=== PATIENT | male | born 1945 | race Caucasian/White ===

== ENCOUNTER 2017-10-17 08:56 | Day surgery (SDC) | payer MEDICARE ==
[~2017-10-17] VITALS: Ht 167.6 cm; Wt 91.3 kg
[2017-10-17] MEDS ORDERED: IOHEXOL 350 MG/ML 50 ML BTL (for Cath Lab) OTHER ONE (08:57)
[2017-10-17] MEDS ORDERED: NS 1000P @30 MLS/HR (KVO) IV SCH (09:00)
[2017-10-17] MEDS ORDERED: ONGL5TAB PO (09:38)
[2017-10-17] MEDS ORDERED: LOSA100T PO (09:38)
[2017-10-17] MEDS ORDERED: METO1TAB9 PO (09:38)
[2017-10-17] MEDS ORDERED: EVOL1INJ SQ (09:38)
[2017-10-17] MEDS ORDERED: LANTINJ SQ (09:38)
[2017-10-17] MEDS ORDERED: COQ1200C3 PO (09:38)
[2017-10-17] MEDS ORDERED: NOVOLOGP2 SQ (09:38)
[2017-10-17] MEDS ORDERED: VICT18IN SQ (09:38)
[2017-10-17] MEDS ORDERED: FENO160T PO (09:38)
[2017-10-17] MEDS ORDERED: ISOS120T PO (09:38)
[2017-10-17] MEDS ORDERED: ECASA81 PO (09:38)
[2017-10-17 09:39] VITALS: BP 165/89; PULSE 80; RESP 18; TEMP 97.9; O2SAT 96
[2017-10-17 09:58] LABS: AUTOMATED NEUTROPHIL # 5.3 TH/MM3 (1.8-7.7); BASOPHIL % 0.5 % (0.0-2.0); EOSINOPHIL # 0.1 TH/MM3 (0-0.4); EOSINOPHIL % 1.5 % (0.0-4.0); HEMATOCRIT 47.1 % (39.0-51.0); HEMO FLAGS DIFF FINAL; LYMPH % 24.2 % (9.0-44.0); MEAN CELL VOLUME 87.7 FL (80.0-100.0); MEAN CORPUSCULAR HEMOGLOBIN 30.8 PG (27.0-34.0); MEAN CORPUSCULAR HGB CONC 35.1 % (32.0-36.0); NEUT % 64.8 % (16.0-70.0); PLATELET COUNT 202 TH/MM3 (150-450); RED BLOOD COUNT 5.37 MIL/MM3 (4.50-5.90); RED CELL DISTRIBUTION WIDTH 13.7 % (11.6-17.2); WHITE BLOOD COUNT 8.1 TH/MM3 (4.0-11.0)
[2017-10-17 10:04] LABS: INTERNATIONAL NORMALIZED RATIO 1.1 RATIO; PROTHROMBIN TIME - PATIENT 10.7 SEC (9.8-11.6)
[2017-10-17 10:05] LABS: POTASSIUM 3.9 MEQ/L (3.5-5.1)
[2017-10-17] MEDS ORDERED: MIDAZOLAM HCL 2 MG/2 ML VIAL ONE (11:14)
[2017-10-17] MEDS ORDERED: HEPARIN-NS/PF INJ 1,000 ML ONE (11:14)
[2017-10-17] MEDS ORDERED: VERAPAMIL HCL 5 MG/2 ML VIAL ONE (11:15)
[2017-10-17] MEDS ORDERED: HEPARIN SODIUM - IV 10,000 UNITS/10 ML VIAL ONE (11:15)
[2017-10-17] MEDS ORDERED: NITROGLYCERIN INJ 5 ML ONE (11:15)
[2017-10-17] MEDS ORDERED: PHENYLEPHRINE HCL 10 MG/ML VIAL ONE (11:39)
[2017-10-17 11:41] VITALS: BP 73/35; PULSE 47
--- NOTE | 2017-10-17 12:00 | CATHPROC ---
[employer] HIS Report Study Information Study Number Admission Scheduled Start Study Start [id number] Oct 17 2017 8:56AM 10/17/2017 Oct 17 2017 10:50AM [place] [facility] Cardiac Catheterization Admit Source Facility Department Other [facility] - Associate Professor Of Radiology Physician and Clinical Staff Initial Christopher Davis Isolation Washer Kelle Pascual,[place] Recorder Abdi Helton,RT(R) Scrub Ladarius KanRT(R) Procedures Performed Procedure Location (Site) Vessel Name Coronary Angiograms LCA Left Coronary Coronary Angiograms RCA Right Coronary L Heart Cath Equipment Time Cell Repairer Description Size Mfg Part Number Used/Scraped TRANSDUCER, TRUWAVE [id number] 10:52 LU DE GUZMAN * Used W/STOCKCOCK *[id number] *[id number] 10:52 [facility] PACK, CCL CUSTOM * Used *[id number] 10:52 [facility] SUPPORT, ARTERIAL ADULT [id number] *[id number] Used BAND, RADIAL COMPRESSION TR [id number] 11:48 [employer] 24CM Used SHORT 24 *[id number] 10:52 [employer] WIRE, EXCHANGE 260CM 3MMJ 260CM Used *[id number] 10:52 NAMIC MANIFOLD, 4 PORT * Used *[id number] 10:52 [employer] OMNIPAQUE, 350 MG, 150ML 150ML [id number] Used [id number] 10:52 [employer],WARM AIR CCL * Used *[id number] SHEATH, FR6 TRANSRADIAL [id number] 10:52 Fundology FR 6 Used SLENDER 10CM *[id number] History: Current Medications Medication Dosage/Unit Route Frequency Last Date/Time Taken 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 Imdur ASA History: Allergies Allergy Reaction Penicillins Isjbbid-Hkt-Ibg Reductase Inhibitor naproxen tetracycline norfloxacin metformin History: Risk Factors Hypertension Dyslipidemia Previous CT Previous Heart Failure Yes Yes No No Prior Valve Prior PCI Prior CABG Surgery No No No Cerebrovascular Peripheral Artery Chronic Lung On Dialysis Diabetes Diabetes Therapy Disease Disease Disease No Yes No No Yes Insulin History: Risk Factors Selection Items Current Smoker Diabetes History: Symptoms/Diagnosis Selection Items Chest pain History: Stress Tests Stress or Imaging Studies Performed Yes Standard Exercise Stress Test No Stress Echo No Stress Test SPECT Stress Test SPECT Result Stress Test SPECT Ischemia Risk/Extent Yes Positive Intermediate Stress Test CMR No Cardiac CTA Coronary Calcium Score No No History: Other Disease Selection Items HTN History: Other Current Smoker Method Packs a Day Years Used Pack Years Yes Cigarettes 1 15 15 Labs Hgb (g/dl) Hct (%) RBC (MIL/MM3) WBC (l/cumm) Platelets (thousands) 11.60-17.00 35.00-51.00 4.00-5.90 4.00-11.00 150.00-450.00 16.5 47.1 5.3 8.1 202 Glucose (mg/dl) BUN (mg/dl) Creatinine (mg/dl) BUN:Creatinine (1:x) 74.00-106.00 7.00-18.00 0.50-1.30 10.00-20.00 314 19 1.1 17.3 Na (meq/l) K (meq/l) Cl (meq/l) CO2 (mmol/L) Ca (mg/dl) 136.00-145.00 3.50-5.10 98.00-107.00 21.00-32.00 8.50-10.10 140 3.9 104 27 9.7 PT (sec) PTT (sec) INR (PTT:PT) 9.80-11.60 24.30-30.10 0.90-1.10 10.7 24 1.1 CPK-MB (ng/ML) 0.50-3.60 Not Drawn Medication Medication Total Dose (Bolus/Oral) Medication Total Dosage/Unit 1% XYLOCAINE 20 mL FENTANYL 25 mcg RADIAL COCKTAIL 5 mL (Bolus) VERSED 0.5 mg Medications (Bolus/Oral) Medication Time Given Dosage/Unit Administered By Reason 10/17/2017 11:31:56 VERSED 0.5 mg Kelle Pascual AM 0.5 mg VERSED given in lab by Kelle Pascual, [place] in Left Antecubital via Peripheral IV. 10/17/2017 11:32:07 FENTANYL 25 mcg Kelle Pascual AM 25 mcg FENTANYL given in lab by Kelle Pascual RN in Left Antecubital via Peripheral IV. 10/17/2017 11:35:18 1% XYLOCAINE 20 mL Christopher Mckinley AM 20 mL 1% XYLOCAINE given in lab by Christopher Mckinley in Right Radial via Subcutaneous. 10/17/2017 11:35:24 Ntg 200mcg Verapamil 2.5mg Heparin RADIAL COCKTAIL 5 mL (Bolus) Christopher Mckinley AM 2500U 5 mL (Bolus) RADIAL COCKTAIL given in lab by Christopher Mckinley in Right Radial via Radial. Using [S olution Name]. Reason: Ntg 200mcg Verapamil 2.5mg Heparin 2500U. Medication (Drip) Medication Time Given Dosage/Unit Concentration/Unit Diluent (ml) Solution 10/17/2017 11:08:09 IV Solutions 0 mL (IV) 500 NaCl .9 AM IV Solutions given in lab by Kelle Pascual, [place] in Left Antecubital via Peripheral IV. Pump/Drip Gary w = 20 ml/hr using NaCl .9. 10/17/2017 11:40:50 LINDA-SYNEPHRINE 50 mcg AM 50 mcg LINDA-SYNEPHRINE given in lab by Kelle Pascual, [place] in Left Antecubital via Peripheral IV. Initial Case Assessment Cardiovascular HR Rhythm NIBP Chest Pain 73 Sinus 160/92 0 Edema Present Skin color Skin None Normal Warm Dry Circulatory - Right Pulses Dorsalis Pedis Femoral Radial 3 3 3 Scale (0,1,2,3,4,d) Scale (0,1,2,3,4,d) Neurological State Oriented to time-place- Alert Moves all extremities person Respiration - General Respiration Rate SpO2 (%) O2 (lpm) (B/min) 20 96 0 Final Case Assessment Cardiovascular HR Rhythm NIBP Chest Pain 62 Sinus 115/55 0 Edema Present Skin color Skin None Normal Warm Dry Circulatory - Right Pulses Dorsalis Pedis Femoral Radial 3 3 3 Scale (0,1,2,3,4,d) Scale (0,1,2,3,4,d) Neurological State Oriented to time-place- Alert Moves all extremities person Respiration - General Respiration Rate SpO2 (%) O2 (lpm) (B/min) 10 93 0 Chronological Log Time Study Chronological Log 11:05:47 Patient arrived via Bed. 11:07:53 Patient Name, D.O.B, / Armband Verified By R.N. 11:07:54 Consent signed by the physician and the patient and verified by the Associate Professor Of Radiology staff. 11:07:55 Pre-op and post- op instructions given; patient acknowledges understanding of instructions. 11:07:56 Verbal Stimulation=2 Physical Stimulation=2 Airway=2 Respiration=2 TOTAL=8. (0=absent, 1=li mited, 2=present) 11:07:58 Presedation assessment performed by Associate Professor Of Radiology RN. 11:08:00 Allens test performed on the right radial and ulnar artery. 11:08:02 Patient has been NPO for More than 6Hrs. 11:08:03 Skin Breakdown- none per patient. 11:08:04 Patient Warmer Placed on the Table. 11:08:06 Svetlana Prominences Protected 11:08:08 A # 20 IV was noted in the Antecubital (left). Grade = 0 IV Solutions given in lab by Kelle Pascual, RN in Left Antecubital via Peripheral IV. Pump/Dr ip Flow = 20 ml/hr using 11:08:09 NaCl .9. 11:08:11 History and physical on the chart or being dictated. Assessment: Initial Case, HR=73 BPM, Rhythm=Sinus, FJTF=411/92 mmhg, Chest Pain=0, Edema=None, Color=Normal, Skin = Warm, Dry 11:08:12 Right Pulses: [place] Ped=3, Femoral=3, Radial=3 Neurological: State=Alert, Ox3, VEGA Respiration: Resp=20 B/min, SpO2=96 %, O2=0 lpm Vitals capture started with the following parameters, Patient=Adult, Interval=5 min, Initial Pr jixnwc=288 mmHg, 11:10:22 Deflation Rate=5 mmHg, Cuff placed on Right Arm 11:11:01 HR=72 bpm, QJFW=581/92 mmhg, SpO2=94.0 %, Resp=14 B/min, Pain=0, Kath=10, Puri=2 11:16:07 HR=77 bpm, KIDU=092/89 mmhg, SpO2=93.0 %, Resp=12 B/min, Pain=0, Kath=10, Puri=2 11:16:39 Reference ECG taken 11:21:00 Right Radial and groin(s) prepped with 2% chlorhexidine, and draped after a 3 min. waiting time. 11:21:06 HR=74 bpm, LHMM=410/104 mmhg, SpO2=94.0 %, Resp=15 B/min, Pain=0, Kath=10, Puri=2 11:21:45 paged 11:25:58 Pressure channel 1 zeroed. 11:26:07 HR=72 bpm, JEVM=958/76 mmhg, SpO2=93.0 %, Resp=8 B/min, Pain=0, Kath=10, Puri=2 11:27:46 MD arrived. 11:31:04 HR=72 bpm, OGQD=309/78 mmhg, SpO2=93.0 %, Resp=13 B/min, Pain=0, Kath=10, Puri=2 11:31:56 0.5 mg VERSED given in lab by Kelle Pascual, RN in Left Antecubital via Peripheral IV. 11:32:07 25 mcg FENTANYL given in lab by Kelle Pascual, [place] in Left Antecubital via Peripheral IV. 11:32:35 Reference ECG taken Time Out. Correct patient, correct procedure, correct physician, power injector not loaded with contrast with surgical 11:32:40 team present. Time Out Concurred by MD and individual staff in procedure. 11:33:06 Case Start 11:35:18 20 mL 1% XYLOCAINE given in lab by Christopher Mckinley in Right Radial via Subcutaneous. 11:35:20 Access site was Radial Artery. A SHEATH, FR6 TRANSRADIAL SLENDER 10CM FR 6 was advanced into the Radial (right) using the Perc utaneous 11:35:23 technique. 5 mL (Bolus) RADIAL COCKTAIL given in lab by Christopher Mckinley in Right Radial via Radial. Us ing [Solution Name]. 11:35:24 Reason: Ntg 200mcg Verapamil 2.5mg Heparin 2500U. A JR 4.0 INFINITI CATHETER FR 5 was advanced over a wire. OMNIPAQUE, 350 MG, 150ML 150ML was us ed for 11:35:57 injections. 11:36:05 HR=80 bpm, CMUS=371/68 mmhg, SpO2=92.0 %, Resp=15 B/min, Pain=0, Kath=10, Puri=2 Recorded Pressure: LV, HR=68, Condition=Condition 1 11:37:40 (Left Ventricle) LV 82/1/5 Recorded Pressure: LV, Ao, HR=67, Condition=Condition 1 11:37:50 (Left Ventricle) LV 81/-3/9, (Aorta) Ao 72/33/49 11:38:13 NIBP STAT measurement started. 11:38:28 Pressure channel 1 zeroed. 11:38:49 HR=57 bpm, NIBP=74/42 mmhg, Resp=15 B/min, Pain=0, Kath=10, Puri=2 11:40:14 The RCA was injected and visualized at various angles. OMNIPAQUE, 350 MG, 150ML 150ML used . 11:40:50 50 mcg LINDA-SYNEPHRINE given in lab by Kelle Pascual RN in Left Antecubital via Periphera l IV. 11:40:58 HR=44 bpm, NIBP=73/40 mmhg, Resp=7 B/min, Pain=0, Kath=10, Puri=2 Recorded Pressure: Ao, HR=45, Condition=Condition 1 11:41:27 (Aorta) Ao 57/31/41 11:41:44 The LCA was injected and visualized at various angles. OMNIPAQUE, 350 MG, 150ML 150ML used . After removing the current catheter a catheter was advanced over a WIRE, EXCHANGE 260CM 3MMJ 26 0CM. Medtronic 11:43:41 JL3.5 11:44:57 The LCA was injected and visualized at various angles. OMNIPAQUE, 350 MG, 150ML 150ML used . Medtronic JL3.5 11:46:27 HR=52 bpm, IHPW=156/55 mmhg, Resp=10 B/min, Pain=0, Kath=10, Puri=2 11:48:35 Catheter was removed 11:50:23 Case End Radial Compression Device Used. 11 mLs of air placed in BAND, RADIAL COMPRESSION TR SHORT 24 24 CM. Affected 11:50:32 hand 91 % O2 saturation. 11:50:51 No case complications noted. 11:50:53 Cine recording checked. 11:51:00 HR=61 bpm, WKMJ=222/55 mmhg, SpO2=92.0 %, Resp=11 B/min, Pain=0, Kath=10, Puri=2 11:51:31 Bedside Report will be given. Assessment: Final Case, HR=62 BPM, Rhythm=Sinus, RLGE=175/55 mmhg, Chest Pain=0, Edema=None, Color=Normal, Skin = Warm, Dry 11:51:39 Right Pulses: Olayinka Ped=3, Femoral=3, Radial=3 Neurological: State=Alert, Ox3, VEGA Respiration: Resp=10 B/min, SpO2=93 %, O2=0 lpm 11:52:54 A Left Heart Cath was performed. 11:55:32 Vitals capture stopped. 11:59:32 Patient moved to stretcher End Study - Contrast Media Used In Study Contrast Total Opened (mL) Total Used (mL) Total Wasted (mL) Omnipaque 150 50 100 End Study - Maximum Contrast Load Max Contrast Load (mL) 415.1 End Study - Radiation Exposure Fluoro Time (minutes) 2.4 End Study - Patient Disposition Complications Transferred To Interventional Outcome No Outpatient Bed No attempt made
[2017-10-17] MEDS ORDERED: MISC INFORMATION XX ONE (12:15)
[2017-10-17] MEDS ORDERED: DEXTROSE 50% IN WATER 50 ML VIAL(D50) IV PUSH PRN (13:45)
--- NOTE | 2017-10-17 13:53 | MA ---
cc: HAM DURANT DO DATE 10/17/2017 PROCEDURE Left heart catheterization, coronary angiogram, moderate sedation 20 minutes. PREPROCEDURE DIAGNOSIS Chest pain, abnormal stress test. POSTPROCEDURE DIAGNOSIS Multivessel coronary artery disease for coronary artery bypass grafting. MEDICATIONS 1. Versed 0.5 mg 2. Fentanyl 25 mcg. 3. Verapamil 2.5 mg 4. Nitro 200 mcg 5. Heparin 3700 units 6. Rodrigo-Synephrine 50 mcg CONTRAST USED 50 cc FLUOROSCOPY 2.4 minutes ANESTHESIA Moderate sedation 20 minutes ESTIMATED BLOOD LOSS 10 cc PROCEDURAL SUMMARY Ankush Salamanca is a pleasant 72-year-old male who sees my partner Dr. Reaves in the office and presented with chest pain. He underwent stress testing earlier this year and was found to have anterior ischemia. At that time, he was feeling relatively asymptomatic and so further testing was held off. He started noticing chest pain when he was getting anxious as well, shortness of breath and so he was recommended cardiac catheterization. The risks, benefits and alternatives were explained to him and he consented as such. He was brought to the lab and prepped in the usual sterile fashion. The right radial artery was accessed using a modified Seldinger technique and placement of a 5/6 Somali slender sheath. This was easily aspirated and flushed. A JR-4 was advanced over a J-wire to the ascending aorta and across the aortic valve for measurement of left ventricular pressure. This was pulled back across the aortic valve showing no significant gradient of aortic stenosis. JR-4 was used for selective angiography of the right coronary artery systems. This was exchanged out for a JL-3.5 which was used for selective angiography of the left coronary artery system. JL-3.5 was removed over a J-wire. Radial band was placed over the arteriotomy site for hemostasis. The patient left the medical laboratory manager cardiovascularly stable. FINDINGS Left main is a normal sized vessel with mild luminal irregularities, but no significant disease noted. It bifurcates into an LAD and circumflex. LAD is a normal-sized vessel with a 90% lesion in the proximal portion and a 90% lesion in the midportion. Distally it has good runoff. It gives off one major diagonal with no significant disease. Left circumflex is a normal sized vessel with mild luminal irregularities throughout the proximal portion. An 80-90% lesion in the midportion. It gives off three major obtuse marginales with no significant disease. RCA is a small to moderate sized vessel with an 80% lesion in the midportion and a 90% lesion distally. It supplies the PDA with a 70% lesion also. LVEDP 9. IMPRESSIONS 1. Multivessel coronary artery disease for coronary artery bypass grafting. 2. Chest pain atypical for coronary insufficiency, abnormal stress test. 3. Diabetes mellitus. RECOMMENDATIONS 1. Mr. Galarza appears to have multivessel disease and as a diabetic he will be recommended consideration of coronary artery bypass grafting. 2. CT surgery will be consulted to evaluate for coronary artery bypass grafting. 3. He can be discharged home and followed up for elective bypass. He will be recommended that if he has any further chest pain that he should come back to the emergency room and we will change our plan for timing of bypass. 4. He will follow up with Dr. Reaves post bypass surgery. Thank you for allowing me to see Ankush Salamanca. If there are any questions, please do not hesitate to call. Ham Durant DO VGP/DJL /12:02 PM /1:30 PM
--- NOTE | 2017-10-17 14:10 | PD.CAR.PN ---
CVT Progress Note Subjective/Hospital Course: sts data discussed with pt RISK SCORES About the STS Risk Calculator Procedure: CAB Only Risk of Mortality: 1.085% Morbidity or Mortality: 10.785% Long Length of Stay: 4.331% Short Length of Stay: 47.676% Permanent Stroke: 0.87% Prolonged Ventilation: 6.214% DSW Infection: 0.581% Renal Failure: 3.575% Reoperation: 4.105% Objective: Vital Signs Date Time Temp Pulse Resp B/P (MAP) Pulse Ox O2 Delivery O2 Flow Rate FiO2 10/17/17 12:06 95 Room Air 10/17/17 11:41 47 73/35 10/17/17 09:39 97.9 80 18 165/89 (114) 96 Labs: Laboratory Tests Test 10/17/17 07:25 White Blood Count 8.1 TH/MM3 (4.0-11.0) Red Blood Count 5.37 MIL/MM3 (4.50-5.90) Hemoglobin 16.5 GM/DL (13.0-17.0) Hematocrit 47.1 % (39.0-51.0) Mean Corpuscular Volume 87.7 FL (80.0-100.0) Mean Corpuscular Hemoglobin 30.8 PG (27.0-34.0) Mean Corpuscular Hemoglobin Concent 35.1 % (32.0-36.0) Red Cell Distribution Width 13.7 % (11.6-17.2) Platelet Count 202 TH/MM3 (150-450) Mean Platelet Volume 8.2 FL (7.0-11.0) Neutrophils (%) (Auto) 64.8 % (16.0-70.0) Lymphocytes (%) (Auto) 24.2 % (9.0-44.0) Monocytes (%) (Auto) 9.0 % (0.0-8.0) Eosinophils (%) (Auto) 1.5 % (0.0-4.0) Basophils (%) (Auto) 0.5 % (0.0-2.0) Neutrophils # (Auto) 5.3 TH/MM3 (1.8-7.7) Lymphocytes # (Auto) 2.0 TH/MM3 (1.0-4.8) Monocytes # (Auto) 0.7 TH/MM3 (0-0.9) Eosinophils # (Auto) 0.1 TH/MM3 (0-0.4) Basophils # (Auto) 0.0 TH/MM3 (0-0.2) CBC Comment DIFF FINAL Differential Comment Prothrombin Time 10.7 SEC (9.8-11.6) Prothromb Time International Ratio 1.1 RATIO Activated Partial Thromboplast Time 24.0 SEC (24.3-30.1) Blood Urea Nitrogen 19 MG/DL (7-18) Creatinine 1.12 MG/DL (0.60-1.30) Random Glucose 314 MG/DL (74-106) Calcium Level 9.7 MG/DL (8.5-10.1) Sodium Level 140 MEQ/L (136-145) Potassium Level 3.9 MEQ/L (3.5-5.1) Chloride Level 104 MEQ/L (98-107) Carbon Dioxide Level 27.0 MEQ/L (21.0-32.0) Anion Gap 9 MEQ/L (5-15) Estimat Glomerular Filtration Rate 65 ML/MIN (>89) Result Diagram: 10/17/17 0725 10/17/17 0725 Starr Mullins Oct 17, 2017 14:10
--- NOTE | 2017-10-17 14:53 | MB ---
cc: YRIS CHERRY DATE OF CONSULTATION 10/17/2017 REASON FOR CONSULTATION Ankush Salamanca is a 72-year-old male patient Dr. Reaves and Dr. Linh Neves who has been having chest pain off and on for the last couple years, mainly notices about three times a week associated more with stress and anxiety with or without exertion. He feels that when he gets it, he gets a tightness in his chest like a rope closing in around his chest. He was given a prescription for some nitro which he has been taking recently which seems to help his discomfort. He was told back in the that he had some abnormal T-waves and was worked up in the past and was found to have gastroesophageal reflux disease. He underwent nuclear stress testing back in October. At that time, it demonstrated a small area of mild to moderate reversibility in the anterior apical region. EF at that time was calculated at 63%. This was followed by cardiac cath today by Dr. Mckinley, his partner, which showed left main disease of 10%. The proximal LAD 90%. The mid distal LAD 90%. The diagonal had 10%. The circ had 90%. The OM 20%. The RCA 80%. We were consulted to evaluate for coronary artery bypass grafting. PAST MEDICAL HISTORY Includes: 1. Abnormal stress test back in 2016 2. Anxiety 3. Hyperlipidemia 4. Hypertension 5. Insulin dependent diabetes mellitus poorly controlled. SURGERIES 1. He has had a cyst removed from his groin. 2. He has had some skin cancers removed from his scalp. 3. History kidney stones. 4. 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 ALLERGIES Include METFORMIN, NAPROXEN, PENICILLIN, STATINS CAUSED MYALGIAS, TETRACYCLE. MEDICATIONS His med list includes: 1. Aspirin 81 daily 2. Co-Q10 3. Tricor 160 p.o. daily 4. Lasix 40 p.o. daily 5. Imdur 120 mg daily 6. He takes Lantus 65 units in the morning. 7. Losartan 100 daily 8. Toprol XL 50 mg daily 9. Onglyza 5 mg p.o. daily 10. Repatha 11. He takes for his hyperlipidemia Victoza 1.2 ml daily. FAMILY HISTORY Father had his first AL at age 38, at 68 from an AL. Mother committed suicide. His younger brother had his bypass grafting x4 in his 40s. SOCIAL HISTORY The patient . He has been smoking approximately eight cigarettes a day for the last 15 years. Rare alcohol. 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 REVIEW OF SYSTEMS GENERAL: No night sweats, fever, heat and cold intolerance. SKIN: No psoriasis, itching or hives. HEENT: No blurred vision or hearing loss. RESPIRATORY: Some cough, shortness of breath when he has the chest discomfort. CARDIOVASCULAR: As above in the HPI. GASTROINTESTINAL: No diarrhea or vomiting. GENITOURINARY: No burning frequency, urgency. STEEPING PRESS TENDER: No history of TIA, CVA, or seizure disorder. ENDOCRINOLOGY: Positive for diabetes. PHYSICAL EXAM On exam blood pressure 160/80, heart rate of 80, afebrile. Patient is awake, alert in no acute distress. HEAD: Normocephalic, atraumatic. EYES, EARS, NOSE AND THROAT: Pupils equal and reactive. Oral mucosa pink, moist. NECK: Supple. No JVD. HEART: S1-S2, regular rate and rhythm. No audible rubs, murmurs, or gallops. LUNGS: Clear to auscultation. No wheezes, rales or rhonchi. ABDOMEN: Soft and nontender. No masses or organomegaly. EXTREMITIES: No cyanosis, clubbing or edema. LABORATORY WORK Hemoglobin of 16, hematocrit of 47, white cell count 8.1, platelet count of 202. Sodium 140, potassium 3.9, BUN of 19, creatinine 1.12, INR 1.1. Chest x-ray pending. Carotid ultrasound and lower vein mapping pending. PFTs are pending. IMPRESSION This is a 72-year-old male with multivessel disease as described as above. Coronary films have been evaluated by Dr. Yris Cherry. The procedures, alternatives and risks have been discussed with the patient. PLAN Planning will be for coronary artery bypass grafting on October 24. In the meantime, I have discussed more strict adherence to his diet in regards to his elevated blood sugars. His hemoglobin A1c is pending. He is to continue all meds except to hold the losartan three days prior to surgery. Dictated by: KARELY Valera MD CHARI Hu/SHARON /2:03 PM /2:18 PM
--- NOTE | 2017-10-17 15:06 | RADRPT ---
EXAM DATE/TIME: 10/17/2017 14:05 [facility] COMPARISON: No previous studies available for comparison. INDICATIONS : Pre-op CABG. MEDICAL HISTORY : Hypertension. Diabetes. Kidney stones. SURGICAL HISTORY : Cardiac catheterization. ENCOUNTER: Initial ACUITY: 1 day PAIN SCORE: 0/10 LOCATION: Bilateral legs. TECHNIQUE: Venous ultrasound of the left and right leg was performed from the inguinal ligament to the proximal calf. Real-time, color Doppler and spectral tracing, compression and augmentation techniques were us ed. FINDINGS: RIGHT LEG: There is normal compressibility of the deep venous system from the inguinal region to the proximal ca lf. No echogenic clot is seen in the lumen of the common femoral, femoral, popliteal, and posterior tibial veins. There is a normal response of the venous system to proximal and distal augmentation an d respiration. LEFT LEG: There is normal compressibility of the deep venous system from the inguinal region to the proximal ca lf. No echogenic clot is seen in the lumen of the common femoral, femoral, popliteal, and posterior tibial veins. There is a normal response of the venous system to proximal and distal augmentation an d respiration. CONCLUSION: No evidence of DVT. Simone Shafer MD on October 17, 2017 at 15:03 Board Certified Radiologist. This report was verified electronically.
--- NOTE | 2017-10-17 15:21 | RADRPT ---
EXAM DATE/TIME: 10/17/2017 14:14 [facility] COMPARISON: No previous studies available for comparison. INDICATIONS : Pre-op CABG. MEDICAL HISTORY : Hypertension. Kidney stones. Diabetes. SURGICAL HISTORY : Cardiac catheterization. ENCOUNTER: Initial ACUITY: 1 day PAIN SCORE: 0/10 LOCATION: Bilateral legs. GREATER SAPHENOUS VEIN THIGH: PROXIMAL: Right 6 mm Left 6 mm MID: Right 3 mm Left 3 mm DISTAL: Right 4 mm Left 3 mm CALF: PROXIMAL: Right 4 mm Left 3 mm MID: Right 3 mm Left 2 mm DISTAL: Right 3 mm Left 3 mm FINDINGS: The venous system of the lower extremities are patent by color Doppler imaging. Measurements of the leg veins (in mm) are listed above. CONCLUSION: Venous mapping study as described. Catracho Cornell MD on October 17, 2017 at 15:19 Board Certified Radiologist. This report was verified electronically.
[2017-10-17 15:22] LABS: ALT (GPT) 23 U/L (12-78); AST (GOT) 22 U/L (15-37)
[2017-10-17 15:24] LABS: ALKALINE PHOSPHATASE 93 U/L (45-117); INDIRECT BILIRUBIN 0.4 MG/DL (0.0-0.8); TOTAL BILIRUBIN ADULT 0.5 MG/DL (0.2-1.0)
--- NOTE | 2017-10-17 15:33 | RADRPT ---
EXAM DATE/TIME: 10/17/2017 14:32 [facility] COMPARISON: No previous studies available for comparison. INDICATIONS : Pre-op CABG. MEDICAL HISTORY : Hypertension. Diabetes. Skin cancer. Kidney stones. SURGICAL HISTORY : Cardiac catheterization. ENCOUNTER: Initial ACUITY: 1 day PAIN SCORE: 0/10 LOCATION: Bilateral neck PEAK SYSTOLIC VELOCITIES (cm/sec): ICA/CCA RATIO: Right: 1.2 Left: 0.6 ICA: Right: 153 Left: 121 CCA: Right: 124 Left: 188 ECA: Right: 258 Left: 165 VERTEBRAL: Right: 66 antegrade Left: 98 antegrade Elevated flow velocities and ICA/CCA ratios have been found to correlate with increased degrees of vessel stenosis, calculated as percentage of diameter relative to a normal segment of distal ICA/CCA FINDINGS: RIGHT CAROTID: Mild calcified plaque with resultant moderate, 50-69%, flow-limiting stenosis based on peak systolic velocities. The waveforms are otherwise within normal limits. LEFT CAROTID: Mild calcified plaque with resultant mild, less than 50%, flow-limiting stenosis based on peak systol ic velocities. If waveforms are otherwise within normal limits. VERTEBRAL ARTERIES: Antegrade flow is seen in both vertebral arteries. MISCELLANEOUS: None. CONCLUSION: 1. Mild right carotid plaque with moderate, 50-69%, flow-limiting stenosis based on peak systolic fadia ocities. This is in the lower range, nearly 50%. 2. Mild left carotid plaque with mild, less than 50%, flow-limiting stenosis. 3. Antegrade vertebral artery flow bilaterally. Los Patel MD on October 17, 2017 at 15:28 Board Certified Radiologist. This report was verified electronically.
--- NOTE | 2017-10-17 15:54 | RADRPT ---
EXAM DATE/TIME: 10/17/2017 15:38 [facility] COMPARISON: No previous studies available for comparison. INDICATIONS : [facility] for pneumothorax, pneumonia, or communicable diseases. Pre-op CABG. MEDICAL HISTORY : None. SURGICAL HISTORY : None. ENCOUNTER: Initial ACUITY: 1 day PAIN SCORE: 0/10 LOCATION: chest FINDINGS: There is mild probable atelectasis or scarring in the lung bases. There is no evidence of effusion. C ardiomediastinal contours are satisfactory. There is degenerative change present in the thoracic spin e. CONCLUSION: Mild basilar parenchymal opacities. Joni Harden MD on October 17, 2017 at 15:49 Board Certified Radiologist. This report was verified electronically.
[2017-10-17 16:23] LABS: BLOOD, URINE NEG (NEG); COMMENT (UR) CULT NOT INDICATED; CULTURE IF INDICATED CULT NOT INDICATED; GLUCOSE,URINE 1000 mg/dL (NEG); KETONE, URINE NEG (NEG); MUCUS URINE FEW /lpf (OCC); NITRITE,URINE NEG (NEG); PH, URINE 5.5 (5.0-8.5); URINE COLOR YELLOW (YELLW/STRAW)
[2017-10-17 16:53] LABS: HEMOGLOBIN A1a 1.4 %; HEMOGLOBIN A1b 1.1 %; HEMOGLOBIN Ao 75.5 %; HEMOGLOBIN F 2.1 %; HEMOGLOBIN LA1C 3.5 %; HEMOGLOBIN P3 5.7 %
--- NOTE | 2017-10-18 23:36 | EKG ---
Date Performed: 10/17/2017 Time Performed: 09:55:24 PTAGE: 72 years EKG: Sinus rhythm Anterolateral T wave changes are nonspecific Borderline ECG NO PREVIOUS TRACING DOCTOR: Dhaval Rodriguez Interpretating Date/Time 10/18/2017 23:35:38
[2017-10-19] MEDS ORDERED: CHOL1CAP24 PO (13:27)
[2017-10-19] MEDS ORDERED: OCUVTAB4 PO (13:27)
[2017-10-19] MEDS ORDERED: CYAN1TAB24 PO (13:27)
== END 2017-10-17 17:17 | disposition home or self-care (01) ==
LOC: HDOC 08:56 → HDIC 08:56 → HDOC 17:17
PROVIDERS: ATTEND Nuclear Medicine Nuclear Cardiology
DX: I25.10 Atherosclerotic heart disease of native coronary artery without angina pectoris (principal); R07.89 Other chest pain; R06.02 Shortness of breath; E11.9 Type 2 diabetes mellitus without complications; K21.9 Gastro-esophageal reflux disease without esophagitis; E78.5 Hyperlipidemia, unspecified; I10 Essential (primary) hypertension; I65.23 Occlusion and stenosis of bilateral carotid arteries; Z79.4 Long term (current) use of insulin; Z95.1 Presence of aortocoronary bypass graft; Z87.442 Personal history of urinary calculi
CPT/HCPCS: 71020; 80048; 80076; 81001; 83036; 85025; 85610; 85730; 86850; 86900; 86901; 87641; 93005; 93458; 93880; 93970; 93998; 94010; C1760; C1769; C1893; J1644; J2250; J2370; J3010; Q9967

== ENCOUNTER 2017-10-24 05:36 | Inpatient (IN) | payer MEDICARE ==
[2017-10-24] VITALS (13 sets, daily range): BP systolic 99–135; BP diastolic 43–65; PULSE 62–78; RESP 10–18; TEMP 95.6–98.6; O2SAT 90–98
[~2017-10-24] VITALS: Ht 167.6 cm; Wt 94.0 kg
[~2017-10-24 05:36] MED LIST: CHOL1CAP24 PO; COQ1200C3 PO; CYAN1TAB24 PO; ECASA81 PO; EVOL1INJ SQ; FENO160T PO; ISOS120T PO; LANTINJ SQ; LOSA100T PO; METO1TAB9 PO; NOVOLOGP2 SQ; OCUVTAB4 PO; ONGL5TAB PO; VICT18IN SQ
[2017-10-24] MEDS ORDERED: DEXTROSE 50% IN WATER 50 ML VIAL(D50) IV PUSH PRN ×2 (06:00→11:45)
[2017-10-24] MEDS ORDERED: INSULIN REGULAR 100 UNITS in NS 100 ML IV PRN (06:00)
[2017-10-24] MEDS ORDERED: SODIUM CHLORIDE 0.9% FLUSH 10 ML FLUSH IV FLUSH PRN ×3 (06:00→11:45)
[2017-10-24] MEDS ORDERED: CHLORHEXIDINE GLUCONATE 4% SOLN 120 ML BTL TOPICAL SCH (06:00)
[2017-10-24] MEDS ORDERED: METOPROLOL TARTRATE 25 MG TAB PO SCH (06:00)
[2017-10-24] MEDS ORDERED: VANCOMYCIN 1000 MG in NS IRR BTL 1000 ML IRRIGATION SCH (06:00)
[2017-10-24] MEDS ORDERED: POVIDONE IODINE 5% (ANTISEPSIS KIT) 4 APPLICATIONS EACH NARE PRN (06:15)
[2017-10-24] MEDS ORDERED: LACTATED RINGER'S 1000 ML IV PRN (06:15)
[2017-10-24] MEDS ORDERED: CHLORHEXIDINE GLUCONATE 2 % 1 PACK (2 CLOTHS) TOPICAL PRN (06:15)
[2017-10-24] MEDS ORDERED: SODIUM CHLORID 0.9% 500 ML IV PRN (06:15)
[2017-10-24] MEDS ORDERED: methylPREDNISolone SOD SUCC 125 MG/2 ML VIAL ONE (06:31)
[2017-10-24] MEDS ORDERED: HEPARIN SODIUM - SQ 10,000 UNITS/ML VIAL ONE (06:31)
[2017-10-24] MEDS ORDERED: VANCOMYCIN HCL 1000 MG VIAL ONE (06:31)
[2017-10-24] MEDS ORDERED: CARDIOPLEGIC IRR 2,000 ML ONE (07:48)
[2017-10-24] MEDS ORDERED: MANNITOL INJ 100 ML ONE (07:49)
[2017-10-24] MEDS ORDERED: POTASSIUM CHLORIDE 40 MEQ/20 ML VIAL ONE (07:49)
[2017-10-24] MEDS ORDERED: SODIUM BICARBONATE 8.4% INJ 100 ML ONE (07:50)
[2017-10-24] MEDS ORDERED: POTASSIUM CHLORIDE 20 MEQ/10 ML VIAL ONE (07:50)
[2017-10-24] MEDS ORDERED: HEPARIN SODIUM - IV 10,000 UNITS/10 ML VIAL ONE (07:51)
[2017-10-24] MEDS: PAPAVERINE 60 MG-NITROGLYCERIN 100 MCG-DILTIAZEM 100 MG in NS 100 ML IRRIGATION SCH ×8 (08:32→11:54)
--- NOTE | 2017-10-24 08:47 | PD.CAR.PN ---
CVT Progress Note Subjective/Hospital Course: 72-year-old male patient Dr. Reaves and Dr. Linh Neves who has been having chest pain off and on for the last couple years, mainly notices about three times a week associated more with stress and anxiety with or without exertion. He feels that when he gets it, he gets a tightness in his chest like a rope closing in around his chest. He was given a prescription for some nitro which he has been taking recently which seems to help his discomfort. He was told back in the that he had some abnormal T-waves and was worked up in the past and was found to have gastroesophageal reflux disease. He underwent nuclear stress testing back in October. At that time, it demonstrated a small area of mild to moderate reversibility in the anterior apical region. EF at that time was calculated at 63%. Pt underwent outpt cardiac cath on 10/17/[address] Mckinley , which showed left main disease of 10%. The proximal LAD 90%. The mid distal LAD 90%. The diagonal had 10%. The circ had 90%. The OM 20%. The RCA 80%. We were consulted at that time to evaluate for coronary artery bypass grafting. Pt was discharged home after complete workup and re-admitted today for elective Coronary artery bypass grafting PAST MEDICAL HISTORY: Abnormal stress test back in 2016, Anxiety, Hyperlipidemia, Hypertension, Insulin dependent diabetes mellitus poorly controlled. preop carotid Ultrasound : Mild right carotid plaque with moderate, 50-69%, flow-limiting stenosis based on peak systolic velocities. This is in the lower range, nearly 50%, Mild left carotid plaque with mild, less than 50%, flow- limiting recommend outpt f/u with Dr Armenta as outpt 6-8 weeks post op Objective: Vital Signs Date Time Temp Pulse Resp B/P (MAP) Pulse Ox O2 Delivery O2 Flow Rate FiO2 10/24/17 06:39 98.5 75 18 136/82 (100) 96 (1) Coronary artery disease (2) Diabetes mellitus (3) S/P CABG (coronary artery bypass graft) (4) Hyperlipemia (5) Hypertension Starr Mullins Oct 24, 2017 08:47
--- NOTE | 2017-10-24 09:00 | HHI.FF ---
Face to Face Verification Diagnosis: (1) Coronary artery disease (2) Diabetes mellitus (3) S/P CABG (coronary artery bypass graft) (4) Hypertension (5) Hyperlipemia Home Health Nursing Order: Signs/symptoms of disease process Diabetic education Medication education-adverse effect Wound care and dressing changes Nursing assessment with vital signs Instructions: Heart and Vascular Surgery patients *Special attention to sternal dressing Mandatory frequency Assess and evaluation, 4 days in a row The next week 3X week 2 times a week for 4 weeks 1 time a week for 5 weeks Schedule Heart and Vascular patients for full 60 day certification period Initial visit Review Open Heart Surgery Discharge Instructions (Sternal precautions, Activity, Elastic hose, Incision care, Driving, Incentive spirometry, Smoking, [place], Work and other) Need Betadine to paint incision Medication reconciliation Importance of follow up care/ check on appointments Make calendar record temperature daily When to call [facility] nurse, review instructions, phone list Incentive Spirometry, demonstration Visit 1- Begin discharge instruction for patient family and/ or caregiver using teach back method- Signs and symptoms of infection Disease characteristics Medicines and side effects Foods and nutrition/ appetite Infection control/ hand washing/ hygiene Visit 2- Continue teaching Discharge instructions- include additional information on smoking cessation , sternal dressing (sternal vac) Visit 3- Continue teaching- Cough and deep breathing, incision monitoring. Choose my plate Visit 4- Continue teaching- Discuss limitations Discuss how they are feeling Discuss progress toward goals Remaining visits- continue teaching and monitoring PREVENA Single Use Negative Wound Therapy System Caregiver Instruction Sheet 1. A Prevena dressing system was applied to the chest incision during surgery , to promote wound healing. It works via a suction device (negative pressure wound therapy) to remove low to moderate levels of exudate (drainage) and infectious materials. We recommend that the device stay in place for up to seven days, from day of surgery. 2. Day of Surgery___/01/06 Day of Removal ___10/31/17 3. The dressing should only be removed by a health skin care instructor. Please arrange removal of device to coincide with Home Health visit and or with Nursing staff at Rehab 4. If skin reddening or irritation of skin occurs, or excessive drainage, please notify the Cardiovascular Surgeons office at [phone]. 5. Light showering is permissible; however the pump should be disconnected and placed in safe location, where it will not get wet. The dressing should not be exposed to direct spray or submerged in water. No bath tub / shower only. Ensure the end of the tubing attached to the dressing is facing down so that water does not enter the top of the tube. 6. To remove Prevena dressing: press purple button to turn off device / remove the suction. Then disconnect the tubing from the pump. The fixation strips should be stretched away from the skin and the dressing lifted at one corner and peeled back until it has been fully removed. 7. After removal, it is ok to shower daily using liquid dial soap and clean wash cloth, rinse and pat dry, and leave incision open to air dry. For any concerns regarding Prevena dressing, and or wounds, please contact Rozina Daniel, patient navigator at [phone] or notify the Cardiovascular Surgeons office at [phone]. Incentive spirometry Q1 hr x 10, while awake, also use acapella device hourly whole awake Sternal Breast Bone Precautions: NO pushing or pulling, ( pt must use sternal pillow to support chest with all activities and with coughing ( takes up to 3 months breast bone to heal ) Daily incision care: ok to shower daily, no tub bath. Wash all incisions with liquid dial soap, clean wash cloth to each site, rinse and pat dry. Observe for any signs of infection, such as drainage which is dark yellow, estrella, green or foul smelling. Immediately report to the surgeon any drainage from the chest incision, or legs, and for any abnormal drainage from the chest tube sites. Notify surgeon if any temp >101.5 degrees F. When specialty dressing removed/ or if you do not have one, continue to shower daily as above, then rinse and pat incision dry and paint with betadine daily x 5 days. Allow steri strips to fall off if you have any. Avoid lotions, creams, salves, oils, etc. for the first month Please see attached forms for additional instructions regarding post Open Heart specialty wound vacuum dressings. GELACIO or Prevena , Dressing to be removed by Nursing staff on __10/31/[address] Cherry patients , please obtain CBC, BMP, PA & Lat CXR in 2 weeks, results to Dr. Cherry ( prescription will be given) ( ) (Tele: [phone]) , F/U appointment: as per MD instructions: PCP in 2 weeks, CV surgeon 2 weeks, Health Spa Manager 3-4 weeks For any questions regarding incisions/ dressing / meds / post op care or above Symptoms, Sunday 8am-5pm Heart & Vascular Surgery Office ( Dr. Robbins & Dr. Cherry), After Hours / Nights (5pm -8am) Weekends and Holidays Please call [facility] ([facility]) Charge Nurse I have seen patient Ankush Salamanca on 10/24/17. My clinical findings support the need for the requested home health care services because: Deconditioned w/ increased weakness I certify that my clinical findings support that this patient is homebound because: Post-op weakness Starr Mullins Oct 24, 2017 09:00
[2017-10-24] MEDS ORDERED: PROTAMINE SULFATE 50 MG/5 ML VIAL ONE (09:53)
[2017-10-24] MEDS ORDERED: LACTATED RINGER'S 1000 ML INJ 500 ML IV PRN (11:34)
[2017-10-24] MEDS ORDERED: METOPROLOL TARTRATE 5 MG/5 ML VIAL IV PUSH PRN (11:45)
[2017-10-24] MEDS ORDERED: SODIUM BICARBONATE 8.4% SOLN 50 MEQ/50 ML VIAL IV PUSH PRN ×2 (11:45)
[2017-10-24] MEDS ORDERED: ACETAMINOPHEN 325 MG TAB PO PRN (11:45)
[2017-10-24] MEDS ORDERED: CALCIUM CHLORIDE INJ 1 GM in SODIUM CHLORIDE 0.9% INJ 100 ML IV PRN (11:45)
[2017-10-24] MEDS ORDERED: RESP: ALBUTEROL 2.5 MG/IPRATROPIUM 0.5 MG NEB (PRN) NEB (11:45)
[2017-10-24] MEDS ORDERED: RESP: RACEPINEPHRINE 2.25% 0.5 ML NEB NEB PRN (11:45)
[2017-10-24] MEDS ORDERED: ALBUMIN 5% INJ 250 ML IV PRN (11:45)
[2017-10-24] MEDS ORDERED: Post-op Orders (for Pharmacy) OTHER ONE (11:45)
[2017-10-24] MEDS ORDERED: POTASSIUM CHLOR 20 MEQ PREMIX 100 ML IV PRN ×2 (11:45)
[2017-10-24] MEDS ORDERED: hydrALAZINE HCL 20 MG/ML VIAL IV PUSH PRN (11:45)
[2017-10-24] MEDS ORDERED: POTASSIUM CHLORIDE 20 MEQ CONTROLLED RELEASE TAB PO PRN ×2 (11:45)
[2017-10-24] MEDS ORDERED: MAGNESIUM SULFATE INJ 2 GM in SODIUM CHLORIDE 0.9% INJ 100 ML IV PRN ×4 (11:45)
[2017-10-24] MEDS ORDERED: CALCIUM CHLORIDE 10% 1 GRAM/10 ML VIAL IV PUSH PRN (11:45)
[2017-10-24] MEDS ORDERED: ACETAMINOPHEN 650 MG SUPP RECTAL PRN (11:45)
--- NOTE | 2017-10-24 11:45 | PD.OP ---
cc: Clifton Reaves MD; Yris Cherry MD; Christopher Mckinley DO Operative Report Date of Surgery: Oct 24, 2017 Preoperative Diagnosis: (1) Angina pectoris (2) Coronary artery disease Postoperative Diagnosis: same Procedure: CABG x 4 CHIU to LAD - good SVG to D1 - good SVG to OM2 - good SVG to PDA - fair EVH Anesthesia: Dr. Bhardwaj Surgeon: Yris Cherry Medical Office Scheduler(s): JOSE Abreu Operation and Findings: The risks, benefits, complications, treatment options, and expected outcomes were discussed with the patient. The possibilities of reaction to medication, pulmonary aspiration, perforation of viscus, bleeding, recurrent infection, the need for additional procedures, failure to diagnose a condition, and creating a complication requiring transfusion or operation were discussed with the patient. The patient concurred with the proposed plan, giving informed consent. The site of surgery properly noted/marked. The patient was taken to Operating Room, identified as Ankush Salamanca and the procedure verified as CABG, EVH. A Time Out was held and the above information confirmed. Standard monitoring lines and Castro catheter were placed. General anesthesia was induced. The patient was prepped and draped in a sterile fashion. A median sternotomy was performed and electrocautery was used to obtain hemostasis. The left internal mammary artery was procured as a pedicle from the 7th rib to the 1st rib in the usual manner. Simultaneously left greater saphenous vein was procured from the left leg using a minimally invasive endoscopic technique. The vein was prepared for anastomosis and the leg wound was irrigated and closed in 2 layers. The pericardium was opened and a pericardial sling was created using interrupted 0 silk sutures. The patient was heparinized for cardiopulmonary bypass and the distal mammary pedicle was instrumented for anastomosis. The heart was instrumented for cardiopulmonary bypass in the usual manner. Antegrade blood cardioplegia was employed. The patient was placed on cardiopulmonary bypass. An aortic cross-clamp was applied and the heart was arrested using cold blood cardioplegia. Antegrade cardioplegia was administered after he each anastomosis. After adequate arrest, the distal right coronary circulation was investigated and the PDA was opened with a Chevak blade and found to be a 1 millimeter fair target. Saphenous vein was approximated to the PDA artery using a running 7 0 Prolene suture. The graft was measured for length and orientation and the proximal anastomosis was constructed to the ascending aorta using a running 5 0 Prolene suture after creating an aortotomy with a 5 millimeter punch. The OM2 artery was opened with a Chevak blade and found to be a 1.5 millimeter good target. Saphenous vein was approximated to the OM2 artery using a running 7 0 Prolene suture. The graft was measured for length and orientation and the proximal anastomosis was constructed to the ascending aorta using a running 5 0 Prolene suture after creating an aortotomy with a 5 millimeter punch. The 1st diagonal artery was then opened with a Chevak blade and found to be a 1.5 millimeter good target. Saphenous vein was approximated to the D1 artery using a running 7 0 Prolene suture. The graft was measured for length and orientation and was suspended from the pericardium. The distal LAD was opened with a Chevak blade and found to be a 1.5 millimeter good target. The left internal mammary artery was approximated to the LAD using a running 7 0 Prolene suture. The pedicle was attached to the epicardium using interrupted 5 0 silk suture. The patient was systemically rewarmed and received a hotshot dose of warm blood cardioplegia. The aorta was vented and the proximal anastomosis to the D1 graft was accomplished using a running 5 0 Prolene suture after creating an aortotomy was a 5 millimeter punch. The cross-clamp was removed and all proximal and distal anastomoses were examined for hemostasis. The patient was weaned from cardiopulmonary bypass. Protamine was given. There was no adverse reaction. Decannulation was carried out without incident. Wound was checked for hemostasis which was obtained using electrocautery. A 36 Polish mediastinal and 32 Polish left pleural chest tubes were placed and secured to the skin with 0 silk suture. The sternum was closed with stainless steel wire. The fascia was closed with 1. PDS. The subcutaneous tissue was closed using a running 2-0 Vicryl suture. The skin was closed with 4-0 Monocryl. Sterile dressings were placed. At the end of the operation, all sponge, instruments, and needle counts were correct. The patient was transferred to the CVICU in stable condition. Findings: Relatively good distal targets XC: 71 min CPB: 80 min Drains: mediastinal x 1 pleural x 1 Complications: none Disposition: to CVICU in stable condition Yris Cherry MD Oct 24, 2017 11:45
[2017-10-24] MEDS ORDERED: FUROSEMIDE 100 MG/10 ML VIAL IV PUSH ONE (12:00)
[2017-10-24] MEDS ORDERED: PHENYLEPH/NS 1000 MCG/10 ML SYR IV ONE (12:00)
[2017-10-24] MEDS ORDERED: CALCIUM CHLORIDE 10% SOLN 1 GRAM/10 ML SYR IV ONE (12:00)
[2017-10-24] MEDS ORDERED: GLYCOPYRROLATE 0.2 MG/ML VIAL IV ONE (12:00)
[2017-10-24] MEDS ORDERED: NITROGLYCERIN 50 MG/DEXTROSE 5% SOLN 250 ML BTL IV ONE (12:00)
[2017-10-24] MEDS ORDERED: MAGNESIUM SULFATE 1 GM/2 ML VIAL IV ONE (12:00)
[2017-10-24] MEDS ORDERED: PROTAMINE SULFATE 50 MG/5 ML VIAL IV ONE (12:00)
[2017-10-24] MEDS ORDERED: SODIUM BICARBONATE 8.4% INJ 50 MEQ/50 ML SYR IV ONE (12:00)
[2017-10-24] MEDS ORDERED: DEXMEDETOMIDINE HCL 200 MCG/2 ML VIAL IV ONE (12:00)
[2017-10-24] MEDS ORDERED: ePHEDrine/NS 25 MG/5 ML SYRINGE IV ONE (12:00)
[2017-10-24] MEDS ORDERED: HEPARIN SODIUM - SQ 10,000 UNITS/ML VIAL SQ ONE (12:00)
[2017-10-24] MEDS ORDERED: VECURONIUM BROMIDE 10 MG VIAL IV ONE (12:00)
[2017-10-24] MEDS ORDERED: PHENYLEPHRINE HCL 10 MG/ML VIAL IV ONE (12:00)
[2017-10-24] MEDS ORDERED: SUCCINYLCHOLINE CHLORIDE 100 MG/5 ML SYRINGE IV PUSH ONE (12:00)
[2017-10-24] MEDS ORDERED: AMINOCAPROIC ACID INJ 250 MG/ML 20 ML VIAL IV ONE (12:00)
[2017-10-24] MEDS ORDERED: fentaNYL CITRATE 1000 MCG/20 ML VIAL ONE (12:39)
[2017-10-24] MEDS ORDERED: MIDAZOLAM HCL 2 MG/2 ML VIAL ONE (12:39)
[2017-10-24] MEDS ORDERED: INSULIN REGULAR (IV INFUSION) 100 UNITS in SODIUM CHLORIDE 0.9% INJ 99 ML IV PRN (13:00)
[2017-10-24] MEDS ORDERED: CLEVIDIPINE INJ 50 ML IV PRN (13:00)
[2017-10-24] MEDS: POTASSIUM CHLOR 20 MEQ PREMIX 100 ML IV PRN ×3 (13:01→17:12)
--- NOTE | 2017-10-24 13:36 | RADRPT ---
EXAM DATE/TIME: 10/24/2017 12:29 [facility] COMPARISON: No previous studies available for comparison. INDICATIONS : Post CABG MEDICAL HISTORY : Hypertension. Diabetes. Skin cancer. Kidney stones. SURGICAL HISTORY : Cardiac catheterization. ENCOUNTER: Initial ACUITY: 1 day PAIN SCORE: Non-responsive. LOCATION: Bilateral chest FINDINGS: An endotracheal has its tip 2 cm above the edda. A nasogastric tube is noted in good position. Left subclavian central line has its tip in the superior vena cava. Left-sided chest tube is noted in goo d position. No pneumothorax is noted. The heart is enlarged. Mild central pulmonary vascular congesti on is noted. Degenerative changes are noted throughout the thoracic spine. CONCLUSION: 1. Multiple tubes and lines are in good positions. 2. Cardiomegaly and mild central pulmonary vascular congestion. Mitchell Shaw MD on October 24, 2017 at 13:32 Board Certified Radiologist. This report was verified electronically.
[2017-10-24] MEDS: AMIODARONE 200 MG TAB PO SCH ×2 (14:00→21:58)
[2017-10-24] MEDS: ACETAMINOPHEN 1000 MG/100 ML 100 ML IV SCH ×2 (15:03→18:25)
[2017-10-24] MEDS: RESP: ALBUTEROL 2.5 MG/IPRATROPIUM 0.5 MG NEB (SCH) NEB ×2 (15:19→21:20)
[2017-10-24] MEDS ORDERED: DEXMEDETOMIDINE INJ 200 MCG in SODIUM CHLORIDE 0.9% INJ 50 ML IV PRN (16:00)
[2017-10-24] MEDS: ONDANSETRON HCL 4 MG/2 ML VIAL IV PUSH PRN (19:51)
[2017-10-24] MEDS: VANCOMYCIN INJ 1,000 MG in SODIUM CHLOR 0.9% 250 ML INJ 250 ML IV SCH (19:59)
[2017-10-24] MEDS: oxyCODONE/ACETAMINOPHEN 5 MG/325 MG TAB PO PRN (20:28)
[2017-10-24] MEDS: SODIUM CHLORIDE 0.9% FLUSH 10 ML FLUSH IV FLUSH SCH (21:51)
[2017-10-25] VITALS (8 sets, daily range): BP systolic 129–141; BP diastolic 47–67; PULSE 71–90; RESP 16–18; TEMP 98.3–99; O2SAT 93–98
[2017-10-25] MEDS: ACETAMINOPHEN 1000 MG/100 ML 100 ML IV SCH ×2 (00:21→06:51)
[2017-10-25] MEDS: RESP: ALBUTEROL 2.5 MG/IPRATROPIUM 0.5 MG NEB (SCH) NEB ×5 (04:03→21:25)
[2017-10-25 04:54] LABS: HEMOGLOBIN 13.5 GM/DL (13.0-17.0); MEAN CELL VOLUME 88.6 FL (80.0-100.0); MEAN CORPUSCULAR HEMOGLOBIN 30.7 PG (27.0-34.0); MEAN CORPUSCULAR HGB CONC 34.7 % (32.0-36.0); PLATELET COUNT 142 TH/MM3 (150-450); RED CELL DISTRIBUTION WIDTH 13.6 % (11.6-17.2); WHITE BLOOD COUNT 15.6 TH/MM3 (4.0-11.0)
--- NOTE | 2017-10-25 05:01 | RADRPT ---
EXAM DATE/TIME: 10/25/2017 04:14 [facility] COMPARISON: CHEST SINGLE AP, October 24, 2017, 12:29. INDICATIONS : Shortness of breath, possible pneumothorax. MEDICAL HISTORY : Hypertension. Renal calculi. Diabetes SURGICAL HISTORY : CABG. ENCOUNTER: Subsequent ACUITY: 2 days PAIN SCORE: Non-responsive. LOCATION: Bilateral chest FINDINGS: A single portable frontal view of the chest shows a left thoracostomy tube and left-sided central derrick e. No pneumothorax. Mild bibasilar atelectasis. No infiltrates or effusions. Heart normal size. Media n sternotomy wires. CONCLUSION: Bibasilar atelectasis. No pneumothorax. Bret Huynh Jr., MD on October 25, 2017 at 5:00 Board Certified Radiologist. This report was verified electronically.
[2017-10-25 05:33] LABS: BICARBONATE 25.7 MEQ/L (21.0-32.0); CALCIUM 7.8 MG/DL (8.5-10.1); CREATININE 0.89 MG/DL (0.60-1.30); MAGNESIUM 2.1 MG/DL (1.5-2.5)
[2017-10-25] MEDS: AMIODARONE 200 MG TAB PO SCH ×3 (06:49→21:27)
[2017-10-25] MEDS: PANTOPRAZOLE SOD 40 MG DELAYED RELEASE TAB PO SCH (06:49)
[2017-10-25] MEDS: VANCOMYCIN INJ 1,000 MG in SODIUM CHLOR 0.9% 250 ML INJ 250 ML IV SCH ×2 (08:29→21:26)
[2017-10-25] MEDS ORDERED: DEXTROSE 50% IN WATER 50 ML VIAL(D50) IV PUSH PRN (09:00)
[2017-10-25] MEDS: MULTIVITAMINS/MINERALS THERAPEUTIC TAB PO SCH (09:00)
[2017-10-25] MEDS: INSULIN DETEMIR 100 UNITS/ML VIAL SQ SCH ×2 (09:00→21:28)
[2017-10-25] MEDS: ASPIRIN 81 MG CHEW TAB PO SCH (09:00)
[2017-10-25] MEDS ORDERED: BISACODYL 10 MG SUPP RECTAL PRN (09:00)
[2017-10-25] MEDS: DOCUSATE SODIUM 100 MG CAP PO SCH ×2 (09:00→21:26)
[2017-10-25] MEDS: SODIUM CHLORIDE 0.9% FLUSH 10 ML FLUSH IV FLUSH SCH ×2 (09:00→21:27)
[2017-10-25] MEDS ORDERED: GLUCAGON 1 MG/ML VIAL OTHER PRN (09:00)
[2017-10-25] MEDS ORDERED: oxyCODONE/ACETAMINOPHEN 5 MG/325 MG TAB PO PRN (09:00)
[2017-10-25] MEDS ORDERED: SOD PHOSPHATE/SOD BIPHOSPHATE (ADULT) ENEMA 133ML RECTAL PRN (09:00)
[2017-10-25] MEDS: MAGNESIUM HYDROXIDE SUSP 30 ML CUP PO SCH (09:00)
[2017-10-25] MEDS: METOPROLOL TARTRATE 25 MG TAB PO SCH ×2 (09:15→21:28)
[2017-10-25] MEDS: INSULIN ASPART SUPPLEMENTAL SCALE SQ SCH ×4 (10:00→21:43)
[2017-10-25] MEDS: KETOROLAC TROMETHAMINE 60 MG/2 ML (IM) VIAL IM PRN ×2 (10:22→17:14)
--- NOTE | 2017-10-25 10:38 | PD.CAR.PN ---
CVT Progress Note Subjective/Hospital Course: 72-year-old male patient Dr. Reaves and Dr. Linh Neves who has been having chest pain off and on for the last couple years, mainly notices about three times a week associated more with stress and anxiety with or without exertion. He feels that when he gets it, he gets a tightness in his chest like a rope closing in around his chest. He was given a prescription for some nitro which he has been taking recently which seems to help his discomfort. He was told back in the that he had some abnormal T-waves and was worked up in the past and was found to have gastroesophageal reflux disease. He underwent nuclear stress testing back in October. At that time, it demonstrated a small area of mild to moderate reversibility in the anterior apical region. EF at that time was calculated at 63%. Pt underwent outpt cardiac cath on 10/17/[address] Mckinley , which showed left main disease of 10%. The proximal LAD 90%. The mid distal LAD 90%. The diagonal had 10%. The circ had 90%. The OM 20%. The RCA 80%. We were consulted at that time to evaluate for coronary artery bypass grafting. Pt was discharged home after complete workup and re-admitted today for elective Coronary artery bypass grafting PAST MEDICAL HISTORY: Abnormal stress test back in 2016, Anxiety, Hyperlipidemia, Hypertension, Insulin dependent diabetes mellitus poorly controlled. intolerant to statins, takes Repatha injection biweekly preop carotid Ultrasound : Mild right carotid plaque with moderate, 50-69%, flow-limiting stenosis based on peak systolic velocities. This is in the lower range, nearly 50%, Mild left carotid plaque with mild, less than 50%, flow- limiting recommend outpt f/u with Dr Armenta as outpt 6-8 weeks post op 1/3 surgery : CABG x 4, CHIU to LAD - good, SVG to D1 - good, SVG to OM2 - good , SVG to PDA - fair, L EVH crystalloid 2500cc, cell saver 1700cc, EBL 500cc extubated after surgery 1/4 Up in chair, very painful, pain meds adjusted bid levimir added, home meds restarted diabetic diet , chest tubes drained 310cc/ 12 hrs arnp pressors, will transfer to stepdown unit Objective: GENERAL: A&O x 3 SKIN: Warm and dry. prevena dressing to chest , prema wrap to left leg HEAD: Normocephalic. EYES: No scleral icterus. No injection or drainage. NECK: Supple, trachea midline. No JVD or lymphadenopathy. CARDIOVASCULAR: Regular rate and rhythm without murmurs, gallops, or rubs. RESPIRATORY: Breath sounds equal bilaterally. No accessory muscle use. slightly diminished in bases , chest tube no air leak, drained 310cc/ 12 hrs GASTROINTESTINAL: Abdomen soft, non-tender, nondistended. MUSCULOSKELETAL: No cyanosis, or edema. BACK: Nontender without obvious deformity. No CVA tenderness. Vital Signs Date Time Temp Pulse Resp B/P (MAP) Pulse Ox O2 Delivery O2 Flow Rate FiO2 10/25/17 07:26 18 10/25/17 07:26 16 10/25/17 07:00 96 Nasal Cannula 2.00 10/25/17 07:00 98.9 80 18 134/67 (89) 96 Arterial Line 10/25/17 07:00 80 10/25/17 03:14 99.0 71 18 131/62 (85) 97 129/47 (74) 10/25/17 03:00 75 10/24/17 23:38 98.4 73 18 120/60 (80) 97 112/43 (66) 10/24/17 23:00 72 10/24/17 21:24 98 Nasal Cannula 5.00 10/24/17 19:40 98.3 78 18 135/65 (88) 97 128/63 (84) 10/24/17 19:40 99 Nasal Cannula 5.00 10/24/17 19:00 75 10/24/17 16:30 97 Nasal Cannula 6.00 10/24/17 15:34 71 10/24/17 15:26 97.8 71 14 123/61 (81) 97 105/56 (72) 10/24/17 15:00 98 Simple Mask 9.00 10/24/17 14:10 91 Nasal Cannula 6.00 10/24/17 14:10 91 Nasal Cannula 6.00 10/24/17 14:10 91 Nasal Cannula 6 10/24/17 13:43 98.6 10/24/17 13:35 40 10/24/17 13:30 50 10/24/17 13:00 96.0 67 10 110/62 (78) 90 114/53 (73) 10/24/17 13:00 62 10/24/17 12:45 100 10/24/17 12:45 95 100 10/24/17 12:45 95 Mechanical Ventilator 100 10/24/17 12:22 98.6 10/24/17 12:16 90 Mechanical Ventilator 50 10/24/17 12:16 95.6 67 10 103/54 (70) 90 99/46 (63) Labs: Laboratory Tests Test 10/25/17 04:26 White Blood Count 15.6 TH/MM3 (4.0-11.0) Red Blood Count 4.40 MIL/MM3 (4.50-5.90) Hemoglobin 13.5 GM/DL (13.0-17.0) Hematocrit 39.0 % (39.0-51.0) Mean Corpuscular Volume 88.6 FL (80.0-100.0) Mean Corpuscular Hemoglobin 30.7 PG (27.0-34.0) Mean Corpuscular Hemoglobin Concent 34.7 % (32.0-36.0) Red Cell Distribution Width 13.6 % (11.6-17.2) Platelet Count 142 TH/MM3 (150-450) Mean Platelet Volume 8.0 FL (7.0-11.0) Blood Urea Nitrogen 14 MG/DL (7-18) Creatinine 0.89 MG/DL (0.60-1.30) Random Glucose 112 MG/DL (74-106) Calcium Level 7.8 MG/DL (8.5-10.1) Magnesium Level 2.1 MG/DL (1.5-2.5) Sodium Level 145 MEQ/L (136-145) Potassium Level 4.1 MEQ/L (3.5-5.1) Chloride Level 110 MEQ/L (98-107) Carbon Dioxide Level 25.7 MEQ/L (21.0-32.0) Anion Gap 9 MEQ/L (5-15) Estimat Glomerular Filtration Rate 85 ML/MIN (>89) Result Diagram: 10/25/176 10/25/17425 Telemetry: NSR (1) Coronary artery disease (2) S/P CABG (coronary artery bypass graft) Plan: ASA, tricor, BB , amiodarone OOB ambulate pulm toileting nebs ezpap CM to eval for HHC (3) Diabetes mellitus Plan: resume low dose levemir pt on victoza at home onglyza ( home meds diabetic diet , 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
[2017-10-25] MEDS: oxyCODONE/ACETAMINOPHEN 5 MG/325 MG TAB PO PRN (13:00)
[2017-10-25] MEDS ORDERED: SAXAGLIPTIN 5 MG PO SCH (16:00)
[2017-10-25] MEDS: FENOFIBRATE 145 MG TAB PO SCH ×2 (21:00→21:26)
[2017-10-25] MEDS: SENNOSIDES 8.6 MG TAB PO SCH (21:27)
[2017-10-26] VITALS (19 sets, daily range): BP systolic 115–148; BP diastolic 56–73; PULSE 66–94; RESP 16–20; TEMP 98–98.9; O2SAT 92–95
[2017-10-26] MEDS: KETOROLAC TROMETHAMINE 60 MG/2 ML (IM) VIAL IM PRN ×3 (01:17→19:50)
[2017-10-26] MEDS: INSULIN ASPART SUPPLEMENTAL SCALE SQ SCH ×5 (02:00→20:53)
[2017-10-26 05:30] LABS: AUTOMATED NEUTROPHIL # 8.9 TH/MM3 (1.8-7.7); BASOPHIL % 0.4 % (0.0-2.0); EOSINOPHIL % 0.2 % (0.0-4.0); HEMATOCRIT 36.2 % (39.0-51.0); HEMOGLOBIN 12.7 GM/DL (13.0-17.0); LYMPH % 11.9 % (9.0-44.0); LYMPHOCYTE # 1.4 TH/MM3 (1.0-4.8); MEAN CELL VOLUME 88.3 FL (80.0-100.0); MEAN CORPUSCULAR HGB CONC 35.1 % (32.0-36.0); MEAN PLATELET VOLUME 7.7 FL (7.0-11.0); MONOCYTE # 1.1 TH/MM3 (0-0.9); NEUT % 77.5 % (16.0-70.0); PLATELET COUNT 124 TH/MM3 (150-450); RED CELL DISTRIBUTION WIDTH 13.5 % (11.6-17.2); WHITE BLOOD COUNT 11.5 TH/MM3 (4.0-11.0)
[2017-10-26 05:54] LABS: BICARBONATE 27.2 MEQ/L (21.0-32.0); CALCIUM 8.1 MG/DL (8.5-10.1); CREATININE 0.95 MG/DL (0.60-1.30); MAGNESIUM 1.9 MG/DL (1.5-2.5)
[2017-10-26] MEDS: AMIODARONE 200 MG TAB PO SCH ×3 (06:00→20:52)
[2017-10-26] MEDS: PANTOPRAZOLE SOD 40 MG DELAYED RELEASE TAB PO SCH (06:00)
[2017-10-26] MEDS: RESP: ALBUTEROL 2.5 MG/IPRATROPIUM 0.5 MG NEB (SCH) NEB ×3 (07:31→19:50)
[2017-10-26] MEDS: SODIUM CHLORIDE 0.9% FLUSH 10 ML FLUSH IV FLUSH SCH ×2 (08:39→20:53)
[2017-10-26] MEDS: POLYETHYLENE GLYCOL 17 GM PKG PO SCH (08:40)
[2017-10-26] MEDS: MAGNESIUM HYDROXIDE SUSP 30 ML CUP PO SCH (08:40)
[2017-10-26] MEDS: ASPIRIN 81 MG CHEW TAB PO SCH (08:40)
[2017-10-26] MEDS: DOCUSATE SODIUM 100 MG CAP PO SCH ×2 (08:41→20:53)
[2017-10-26] MEDS: MULTIVITAMINS/MINERALS THERAPEUTIC TAB PO SCH (08:41)
[2017-10-26] MEDS: FUROSEMIDE 40 MG/4 ML VIAL IV PUSH SCH (09:01)
[2017-10-26] MEDS: MAGNESIUM SULFATE 1 GM PREMIX 100 ML IV SCH ×2 (09:02→09:11)
--- NOTE | 2017-10-26 09:04 | PD.CAR.PN ---
CVT Progress Note Subjective/Hospital Course: 72-year-old male patient Dr. Reaves and Dr. Linh Neves who has been having chest pain off and on for the last couple years, mainly notices about three times a week associated more with stress and anxiety with or without exertion. He feels that when he gets it, he gets a tightness in his chest like a rope closing in around his chest. He was given a prescription for some nitro which he has been taking recently which seems to help his discomfort. He was told back in the that he had some abnormal T-waves and was worked up in the past and was found to have gastroesophageal reflux disease. He underwent nuclear stress testing back in October. At that time, it demonstrated a small area of mild to moderate reversibility in the anterior apical region. EF at that time was calculated at 63%. Pt underwent outpt cardiac cath on 10/17/[address] Mckinley , which showed left main disease of 10%. The proximal LAD 90%. The mid distal LAD 90%. The diagonal had 10%. The circ had 90%. The OM 20%. The RCA 80%. We were consulted at that time to evaluate for coronary artery bypass grafting. Pt was discharged home after complete workup and re-admitted today for elective Coronary artery bypass grafting PAST MEDICAL HISTORY: Abnormal stress test back in 2016, Anxiety, Hyperlipidemia, Hypertension, Insulin dependent diabetes mellitus poorly controlled. intolerant to statins, takes Repatha injection biweekly preop carotid Ultrasound : Mild right carotid plaque with moderate, 50-69%, flow-limiting stenosis based on peak systolic velocities. This is in the lower range, nearly 50%, Mild left carotid plaque with mild, less than 50%, flow- limiting recommend outpt f/u with Dr Armenta as outpt 6-8 weeks post op 1/3 surgery : CABG x 4, CHIU to LAD - good, SVG to D1 - good, SVG to OM2 - good , SVG to PDA - fair, L EVH crystalloid 2500cc, cell saver 1700cc, EBL 500cc extubated after surgery 10/25 Up in chair, very painful, pain meds adjusted bid levimir added, home meds restarted diabetic diet , chest tubes drained 310cc/ 12 hrs no pressors, will transfer to stepdown unit 10/26 pt intermittent afib/ debbie v score 3.2 give additional IV amiodarone 150mg IV x 1 mag 1.9/ give 2gms gentle diuresis / check labs in am chest tube drained 150cc/ 12 hr and 100cc since 6am/ will leave in today Objective: GENERAL: SKIN: Warm and dry. 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 EYES: No scleral icterus. No injection or drainage. NECK: Supple, trachea midline. No JVD or lymphadenopathy. CARDIOVASCULAR: intermittent irregular rhythm without murmurs, gallops, or rubs. RESPIRATORY: Breath sounds equal bilaterally. No accessory muscle use. few basilar crackles GASTROINTESTINAL: Abdomen soft, non-tender, nondistended. MUSCULOSKELETAL: No cyanosis, or edema. BACK: Nontender without obvious deformity. No CVA tenderness. Vital Signs Date Time Temp Pulse Resp B/P (MAP) Pulse Ox O2 Delivery O2 Flow Rate FiO2 10/26/17 08:00 88 16 148/73 (98) 94 10/26/17 08:00 94 Nasal Cannula 2.00 10/26/17 08:00 88 10/26/17 07:35 92 Nasal Cannula 3.00 10/26/17 04:00 98.7 72 20 144/68 (93) 95 10/26/17 04:00 95 Nasal Cannula 4.00 10/26/17 04:00 72 10/26/17 02:00 92 Nasal Cannula 4.00 10/26/17 00:00 94 Nasal Cannula 2.00 10/26/17 00:00 94 10/26/17 00:00 98.7 94 20 137/65 (89) 94 10/25/17 21:35 95 Nasal Cannula 2.00 10/25/17 20:00 93 Nasal Cannula 2.00 10/25/17 20:00 86 10/25/17 20:00 98.4 86 18 137/65 (89) 93 10/25/17 18:15 16 10/25/17 15:00 98.6 90 16 129/60 (83) 98 10/25/17 15:00 90 10/25/17 14:07 95 Nasal Cannula 2.00 10/25/17 14:03 16 10/25/17 11:00 98.3 88 16 141/64 (89) 98 10/25/17 11:00 88 Labs: Laboratory Tests Test 10/26/17 05:10 White Blood Count 11.5 TH/MM3 (4.0-11.0) Red Blood Count 4.10 MIL/MM3 (4.50-5.90) Hemoglobin 12.7 GM/DL (13.0-17.0) Hematocrit 36.2 % (39.0-51.0) Mean Corpuscular Volume 88.3 FL (80.0-100.0) Mean Corpuscular Hemoglobin 31.0 PG (27.0-34.0) Mean Corpuscular Hemoglobin Concent 35.1 % (32.0-36.0) Red Cell Distribution Width 13.5 % (11.6-17.2) Platelet Count 124 TH/MM3 (150-450) Mean Platelet Volume 7.7 FL (7.0-11.0) Neutrophils (%) (Auto) 77.5 % (16.0-70.0) Lymphocytes (%) (Auto) 11.9 % (9.0-44.0) Monocytes (%) (Auto) 10.0 % (0.0-8.0) Eosinophils (%) (Auto) 0.2 % (0.0-4.0) Basophils (%) (Auto) 0.4 % (0.0-2.0) Neutrophils # (Auto) 8.9 TH/MM3 (1.8-7.7) Lymphocytes # (Auto) 1.4 TH/MM3 (1.0-4.8) Monocytes # (Auto) 1.1 TH/MM3 (0-0.9) Eosinophils # (Auto) 0.0 TH/MM3 (0-0.4) Basophils # (Auto) 0.0 TH/MM3 (0-0.2) CBC Comment DIFF FINAL Differential Comment Blood Urea Nitrogen 16 MG/DL (7-18) Creatinine 0.95 MG/DL (0.60-1.30) Random Glucose 126 MG/DL (74-106) Calcium Level 8.1 MG/DL (8.5-10.1) Magnesium Level 1.9 MG/DL (1.5-2.5) Sodium Level 141 MEQ/L (136-145) Potassium Level 3.8 MEQ/L (3.5-5.1) Chloride Level 107 MEQ/L (98-107) Carbon Dioxide Level 27.2 MEQ/L (21.0-32.0) Anion Gap 7 MEQ/L (5-15) Estimat Glomerular Filtration Rate 78 ML/MIN (>89) Result Diagram: 10/26/17 0510 10/26/17509 Telemetry: NSR> Afib> NSR (1) Coronary artery disease (2) S/P CABG (coronary artery bypass graft) Plan: ASA, tricor, BB , amiodarone additional amiodarone IV 150mg replace mag OOB ambulate pulm toileting nebs ezpap CM to eval for HHC (3) Diabetes mellitus Plan: increase levemir pt on victoza at home onglyza ( home meds diabetic diet , 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
[2017-10-26] MEDS: METOPROLOL TARTRATE 25 MG TAB PO SCH ×2 (09:05→20:52)
[2017-10-26] MEDS: POTASSIUM CHLORIDE 20 MEQ CONTROLLED RELEASE TAB PO SCH (09:11)
[2017-10-26] MEDS ORDERED: AMIODARONE INJ 150 MG in DEXTROSE 5% IN WATER 100ML INJ 97 ML IV ONE ×2 (09:30)
[2017-10-26] MEDS ORDERED: POTASSIUM CHLORIDE 20 MEQ CONTROLLED RELEASE TAB PO ONE (10:00)
[2017-10-26] MEDS: oxyCODONE/ACETAMINOPHEN 5 MG/325 MG TAB PO PRN ×2 (11:24→17:20)
[2017-10-26] MEDS: INSULIN DETEMIR 100 UNITS/ML VIAL SQ SCH ×2 (11:25→20:53)
[2017-10-26] MEDS: LOSARTAN 25 MG TAB PO SCH (17:20)
[2017-10-26] MEDS: SENNOSIDES 8.6 MG TAB PO SCH (20:52)
[2017-10-26] MEDS: FENOFIBRATE 145 MG TAB PO SCH (20:52)
--- NOTE | 2017-10-26 23:18 | EKG ---
Date Performed: 10/25/2017 Time Performed: 04:35:04 PTAGE: 72 years EKG: Sinus rhythm Anterior T wave changes are nonspecific Borderline ECG PREVIOUS TRACING : 10/17/2017 09.55 DOCTOR: Kai Trotter Interpretating Date/Time 10/26/2017 23:18:04
[2017-10-27] VITALS (27 sets, daily range): BP systolic 119–161; BP diastolic 57–80; PULSE 62–78; RESP 17–18; TEMP 97.5–99; O2SAT 92–98
[2017-10-27] MEDS: oxyCODONE/ACETAMINOPHEN 5 MG/325 MG TAB PO PRN ×4 (02:12→21:05)
[2017-10-27 05:37] LABS: AUTOMATED NEUTROPHIL # 6.6 TH/MM3 (1.8-7.7); BASOPHIL % 0.5 % (0.0-2.0); EOSINOPHIL # 0.1 TH/MM3 (0-0.4); EOSINOPHIL % 0.8 % (0.0-4.0); HEMATOCRIT 34.8 % (39.0-51.0); HEMOGLOBIN 12.2 GM/DL (13.0-17.0); LYMPH % 15.9 % (9.0-44.0); LYMPHOCYTE # 1.5 TH/MM3 (1.0-4.8); MEAN CELL VOLUME 88.6 FL (80.0-100.0); MEAN CORPUSCULAR HEMOGLOBIN 31.1 PG (27.0-34.0); MEAN CORPUSCULAR HGB CONC 35.1 % (32.0-36.0); MEAN PLATELET VOLUME 8.1 FL (7.0-11.0); MONO % 10.5 % (0.0-8.0); NEUT % 72.3 % (16.0-70.0); PLATELET COUNT 130 TH/MM3 (150-450); RED BLOOD COUNT 3.93 MIL/MM3 (4.50-5.90); WHITE BLOOD COUNT 9.1 TH/MM3 (4.0-11.0)
[2017-10-27 05:56] LABS: BICARBONATE 27.4 MEQ/L (21.0-32.0); CALCIUM 8.3 MG/DL (8.5-10.1); CREATININE 1.11 MG/DL (0.60-1.30); MAGNESIUM 1.9 MG/DL (1.5-2.5)
[2017-10-27] MEDS: KETOROLAC TROMETHAMINE 60 MG/2 ML (IM) VIAL IM PRN (06:33)
[2017-10-27] MEDS: PANTOPRAZOLE SOD 40 MG DELAYED RELEASE TAB PO SCH (06:35)
[2017-10-27] MEDS: AMIODARONE 200 MG TAB PO SCH ×3 (06:35→21:05)
[2017-10-27] MEDS: INSULIN ASPART SUPPLEMENTAL SCALE SQ SCH ×4 (08:00→21:00)
[2017-10-27] MEDS: INSULIN DETEMIR 100 UNITS/ML VIAL SQ SCH ×2 (08:29→21:17)
[2017-10-27] MEDS: MAGNESIUM HYDROXIDE SUSP 30 ML CUP PO SCH (08:30)
[2017-10-27] MEDS: FUROSEMIDE 40 MG/4 ML VIAL IV PUSH SCH (08:32)
[2017-10-27] MEDS: POLYETHYLENE GLYCOL 17 GM PKG PO SCH (08:32)
[2017-10-27] MEDS: POTASSIUM CHLORIDE 20 MEQ CONTROLLED RELEASE TAB PO SCH (08:33)
[2017-10-27] MEDS: DOCUSATE SODIUM 100 MG CAP PO SCH ×2 (08:33→21:05)
[2017-10-27] MEDS: MULTIVITAMINS/MINERALS THERAPEUTIC TAB PO SCH (08:33)
[2017-10-27] MEDS: METOPROLOL TARTRATE 25 MG TAB PO SCH ×2 (08:33→21:05)
[2017-10-27] MEDS: ASPIRIN 81 MG CHEW TAB PO SCH (08:33)
[2017-10-27] MEDS: SODIUM CHLORIDE 0.9% FLUSH 10 ML FLUSH IV FLUSH SCH ×2 (08:35→21:02)
[2017-10-27] MEDS: LOSARTAN 25 MG TAB PO SCH (08:36)
[2017-10-27] MEDS: RESP: ALBUTEROL 2.5 MG/IPRATROPIUM 0.5 MG NEB (SCH) NEB (09:13)
--- NOTE | 2017-10-27 10:17 | PD.CAR.PN ---
CVT Progress Note Subjective/Hospital Course: 72-year-old male patient Dr. Reaves and Dr. Linh Neves who has been having chest pain off and on for the last couple years, mainly notices about three times a week associated more with stress and anxiety with or without exertion. He feels that when he gets it, he gets a tightness in his chest like a rope closing in around his chest. He was given a prescription for some nitro which he has been taking recently which seems to help his discomfort. He was told back in the that he had some abnormal T-waves and was worked up in the past and was found to have gastroesophageal reflux disease. He underwent nuclear stress testing back in October. At that time, it demonstrated a small area of mild to moderate reversibility in the anterior apical region. EF at that time was calculated at 63%. Pt underwent outpt cardiac cath on 10/17/[address] Mckinley , which showed left main disease of 10%. The proximal LAD 90%. The mid distal LAD 90%. The diagonal had 10%. The circ had 90%. The OM 20%. The RCA 80%. We were consulted at that time to evaluate for coronary artery bypass grafting. Pt was discharged home after complete workup and re-admitted today for elective Coronary artery bypass grafting PAST MEDICAL HISTORY: Abnormal stress test back in 2016, Anxiety, Hyperlipidemia, Hypertension, Insulin dependent diabetes mellitus poorly controlled. intolerant to statins, takes Repatha injection biweekly preop carotid Ultrasound : Mild right carotid plaque with moderate, 50-69%, flow-limiting stenosis based on peak systolic velocities. This is in the lower range, nearly 50%, Mild left carotid plaque with mild, less than 50%, flow- limiting recommend outpt f/u with Dr Armenta as outpt 6-8 weeks post op 1/3 surgery : CABG x 4, CHIU to LAD - good, SVG to D1 - good, SVG to OM2 - good , SVG to PDA - fair, L EVH crystalloid 2500cc, cell saver 1700cc, EBL 500cc extubated after surgery 10/25 Up in chair, very painful, pain meds adjusted bid levimir added, home meds restarted diabetic diet , chest tubes drained 310cc/ 12 hrs no pressors, will transfer to stepdown unit 10/26 pt intermittent afib/ debbie v score 3.2 give additional IV amiodarone 150mg IV x 1 mag 1.9/ give 2gms gentle diuresis / check labs in am chest tube drained 150cc/ 12 hr and 100cc since 6am/ will leave in today 10/[address] still draining Re-evaluate in am for removal of CT Continue ambulating Discharge planning Objective: Vital Signs Date Time Temp Pulse Resp B/P (MAP) Pulse Ox O2 Delivery O2 Flow Rate FiO2 10/27/17 09:13 97 Nasal Cannula 2.00 10/27/17 08:00 68 10/27/17 07:51 99.0 78 18 132/68 (89) 94 10/27/17 07:33 18 10/27/17 07:31 94 Nasal Cannula 1.00 10/27/17 07:00 70 10/27/17 06:00 68 10/27/17 05:00 67 10/27/17 04:05 18 10/27/17 04:00 68 10/27/17 03:00 97.5 70 18 128/61 (83) 92 10/27/17 03:00 74 10/27/17 03:00 92 Nasal Cannula 1.00 10/27/17 02:00 75 10/27/17 01:00 65 10/27/17 00:00 65 10/26/17 23:00 68 10/26/17 23:00 98.6 67 18 135/63 (87) 92 10/26/17 23:00 92 Nasal Cannula 1.00 10/26/17 22:00 66 10/26/17 21:00 82 10/26/17 20:00 76 10/26/17 19:52 92 Nasal Cannula 2.00 10/26/17 19:00 84 10/26/17 19:00 98.9 79 18 120/59 (79) 93 10/26/17 19:00 93 Nasal Cannula 1.00 10/26/17 16:00 98.5 83 16 115/56 (75) 93 10/26/17 16:00 73 10/26/17 16:00 93 Nasal Cannula 1.00 10/26/17 15:00 84 10/26/17 14:34 93 Nasal Cannula 2.00 10/26/17 14:00 79 10/26/17 13:00 80 10/26/17 12:00 82 10/26/17 11:27 78 121/59 10/26/17 11:00 80 10/26/17 11:00 94 Nasal Cannula 1.00 10/26/17 11:00 98.0 80 16 121/59 (79) 94 Labs: Laboratory Tests Test 10/27/17 04:45 White Blood Count 9.1 TH/MM3 (4.0-11.0) Red Blood Count 3.93 MIL/MM3 (4.50-5.90) Hemoglobin 12.2 GM/DL (13.0-17.0) Hematocrit 34.8 % (39.0-51.0) Mean Corpuscular Volume 88.6 FL (80.0-100.0) Mean Corpuscular Hemoglobin 31.1 PG (27.0-34.0) Mean Corpuscular Hemoglobin Concent 35.1 % (32.0-36.0) Red Cell Distribution Width 13.0 % (11.6-17.2) Platelet Count 130 TH/MM3 (150-450) Mean Platelet Volume 8.1 FL (7.0-11.0) Neutrophils (%) (Auto) 72.3 % (16.0-70.0) Lymphocytes (%) (Auto) 15.9 % (9.0-44.0) Monocytes (%) (Auto) 10.5 % (0.0-8.0) Eosinophils (%) (Auto) 0.8 % (0.0-4.0) Basophils (%) (Auto) 0.5 % (0.0-2.0) Neutrophils # (Auto) 6.6 TH/MM3 (1.8-7.7) Lymphocytes # (Auto) 1.5 TH/MM3 (1.0-4.8) Monocytes # (Auto) 1.0 TH/MM3 (0-0.9) Eosinophils # (Auto) 0.1 TH/MM3 (0-0.4) Basophils # (Auto) 0.0 TH/MM3 (0-0.2) CBC Comment DIFF FINAL Differential Comment Blood Urea Nitrogen 21 MG/DL (7-18) Creatinine 1.11 MG/DL (0.60-1.30) Random Glucose 153 MG/DL (74-106) Calcium Level 8.3 MG/DL (8.5-10.1) Magnesium Level 1.9 MG/DL (1.5-2.5) Sodium Level 137 MEQ/L (136-145) Potassium Level 4.0 MEQ/L (3.5-5.1) Chloride Level 103 MEQ/L (98-107) Carbon Dioxide Level 27.4 MEQ/L (21.0-32.0) Anion Gap 7 MEQ/L (5-15) Estimat Glomerular Filtration Rate 65 ML/MIN (>89) Result Diagram: 10/27/1744410/27/17444 (1) Coronary artery disease (2) S/P CABG (coronary artery bypass graft) Plan: ASA, tricor, BB , amiodarone additional amiodarone IV 150mg replace mag OOB ambulate pulm toileting nebs ezpap CM to eval for HHC (3) Diabetes mellitus Plan: increase levemir pt on victoza at home onglyza ( 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
[2017-10-27] MEDS: ONDANSETRON HCL 4 MG/2 ML VIAL IV PUSH PRN (16:43)
[2017-10-27] MEDS: SENNOSIDES 8.6 MG TAB PO SCH (21:05)
[2017-10-27] MEDS: FENOFIBRATE 145 MG TAB PO SCH (21:06)
[2017-10-28] VITALS (23 sets, daily range): BP systolic 100–151; BP diastolic 52–68; PULSE 58–75; RESP 17–19; TEMP 98.1–99.2; O2SAT 92–95
[2017-10-28] MEDS: oxyCODONE/ACETAMINOPHEN 5 MG/325 MG TAB PO PRN ×2 (01:35→21:58)
[2017-10-28] MEDS: AMIODARONE 200 MG TAB PO SCH ×3 (05:28→21:58)
[2017-10-28] MEDS: PANTOPRAZOLE SOD 40 MG DELAYED RELEASE TAB PO SCH (05:28)
[2017-10-28] MEDS: INSULIN ASPART SUPPLEMENTAL SCALE SQ SCH ×4 (08:00→21:00)
[2017-10-28] MEDS: INSULIN DETEMIR 100 UNITS/ML VIAL SQ SCH ×2 (09:00→21:57)
[2017-10-28] MEDS: MAGNESIUM HYDROXIDE SUSP 30 ML CUP PO SCH (09:00)
[2017-10-28] MEDS: POLYETHYLENE GLYCOL 17 GM PKG PO SCH (09:03)
[2017-10-28] MEDS: LOSARTAN 25 MG TAB PO SCH (09:04)
[2017-10-28] MEDS: METOPROLOL TARTRATE 25 MG TAB PO SCH ×2 (09:04→21:58)
[2017-10-28] MEDS: MULTIVITAMINS/MINERALS THERAPEUTIC TAB PO SCH (09:04)
[2017-10-28] MEDS: POTASSIUM CHLORIDE 20 MEQ CONTROLLED RELEASE TAB PO SCH (09:04)
[2017-10-28] MEDS: ASPIRIN 81 MG CHEW TAB PO SCH (09:04)
[2017-10-28] MEDS: DOCUSATE SODIUM 100 MG CAP PO SCH ×2 (09:04→21:58)
[2017-10-28] MEDS: SODIUM CHLORIDE 0.9% FLUSH 10 ML FLUSH IV FLUSH SCH ×2 (09:05→21:59)
[2017-10-28] MEDS: FUROSEMIDE 40 MG/4 ML VIAL IV PUSH SCH (09:05)
--- NOTE | 2017-10-28 10:39 | PD.CAR.PN ---
CVT Progress Note Subjective/Hospital Course: 72-year-old male patient Dr. Reaves and Dr. Linh Neves who has been having chest pain off and on for the last couple years, mainly notices about three times a week associated more with stress and anxiety with or without exertion. He feels that when he gets it, he gets a tightness in his chest like a rope closing in around his chest. He was given a prescription for some nitro which he has been taking recently which seems to help his discomfort. He was told back in the that he had some abnormal T-waves and was worked up in the past and was found to have gastroesophageal reflux disease. He underwent nuclear stress testing back in October. At that time, it demonstrated a small area of mild to moderate reversibility in the anterior apical region. EF at that time was calculated at 63%. Pt underwent outpt cardiac cath on 10/17/[address] Mckinley , which showed left main disease of 10%. The proximal LAD 90%. The mid distal LAD 90%. The diagonal had 10%. The circ had 90%. The OM 20%. The RCA 80%. We were consulted at that time to evaluate for coronary artery bypass grafting. Pt was discharged home after complete workup and re-admitted today for elective Coronary artery bypass grafting PAST MEDICAL HISTORY: Abnormal stress test back in 2016, Anxiety, Hyperlipidemia, Hypertension, Insulin dependent diabetes mellitus poorly controlled. intolerant to statins, takes Repatha injection biweekly preop carotid Ultrasound : Mild right carotid plaque with moderate, 50-69%, flow-limiting stenosis based on peak systolic velocities. This is in the lower range, nearly 50%, Mild left carotid plaque with mild, less than 50%, flow- limiting recommend outpt f/u with Dr Armenta as outpt 6-8 weeks post op 1/3 surgery : CABG x 4, CHIU to LAD - good, SVG to D1 - good, SVG to OM2 - good , SVG to PDA - fair, L EVH crystalloid 2500cc, cell saver 1700cc, EBL 500cc extubated after surgery 10/25 Up in chair, very painful, pain meds adjusted bid levimir added, home meds restarted diabetic diet , chest tubes drained 310cc/ 12 hrs no pressors, will transfer to stepdown unit 10/26 pt intermittent afib/ debbie v score 3.2 give additional IV amiodarone 150mg IV x 1 mag 1.9/ give 2gms gentle diuresis / check labs in am chest tube drained 150cc/ 12 hr and 100cc since 6am/ will leave in today 10/[address] still draining Re-evaluate in am for removal of CT Continue ambulating Discharge planning 10/[address] today Discharge planning Objective: Vital Signs Date Time Temp Pulse Resp B/P (MAP) Pulse Ox O2 Delivery O2 Flow Rate FiO2 10/28/17 10:00 63 10/28/17 09:00 72 10/28/17 08:00 65 10/28/17 07:15 99.2 67 17 121/58 (79) 92 10/28/17 07:15 92 Room Air 10/28/17 07:00 66 10/28/17 06:09 62 10/28/17 05:04 58 10/28/17 04:06 59 10/28/17 03:00 63 10/28/17 03:00 98.2 75 17 123/67 (85) 93 10/28/17 03:00 93 Room Air 10/28/17 02:07 17 10/28/17 02:04 62 10/28/17 01:00 59 10/28/17 00:00 63 10/27/17 23:00 98 Room Air 10/27/17 23:00 63 10/27/17 23:00 98.3 67 17 161/80 (107) 98 10/27/17 22:00 67 10/27/17 21:00 66 10/27/17 20:00 72 10/27/17 19:36 21 10/27/17 19:00 98.0 75 17 119/58 (78) 93 10/27/17 19:00 93 Room Air 10/27/17 19:00 75 10/27/17 18:00 70 10/27/17 17:00 62 10/27/17 16:00 68 10/27/17 15:18 98.6 65 18 120/57 (78) 96 10/27/17 15:17 96 Room Air 10/27/17 15:00 64 10/27/17 14:00 70 10/27/17 13:00 68 10/27/17 12:00 96 Nasal Cannula 1.00 10/27/17 12:00 66 10/27/17 12:00 98.8 65 18 123/58 (79) 95 10/27/17 11:59 65 Result Diagram: 10/27/17 0445 10/27/17 0445 (1) Coronary artery disease (2) S/P CABG (coronary artery bypass graft) Plan: ASA, tricor, BB , amiodarone additional amiodarone IV 150mg replace mag OOB ambulate pulm toileting nebs ezpap CM to eval for HHC (3) Diabetes mellitus Plan: increase levemir pt on victoza at home onglyza ( 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
[2017-10-28] MEDS: FENOFIBRATE 145 MG TAB PO SCH (21:58)
[2017-10-28] MEDS: SENNOSIDES 8.6 MG TAB PO SCH (21:59)
[2017-10-28] MEDS ORDERED: diphenhydrAMINE HCL 25 MG CAP PO PRN (22:00)
[2017-10-29] VITALS (11 sets, daily range): BP systolic 105–137; BP diastolic 53–69; PULSE 60–92; RESP 18; TEMP 97.8–98; O2SAT 92–95
[2017-10-29] MEDS: PANTOPRAZOLE SOD 40 MG DELAYED RELEASE TAB PO SCH (05:54)
[2017-10-29] MEDS: AMIODARONE 200 MG TAB PO SCH (05:54)
[2017-10-29] MEDS: METOPROLOL TARTRATE 25 MG TAB PO SCH (07:31)
[2017-10-29] MEDS: MULTIVITAMINS/MINERALS THERAPEUTIC TAB PO SCH (07:31)
[2017-10-29] MEDS: LOSARTAN 25 MG TAB PO SCH (07:32)
[2017-10-29] MEDS: SODIUM CHLORIDE 0.9% FLUSH 10 ML FLUSH IV FLUSH SCH (07:32)
[2017-10-29] MEDS: ASPIRIN 81 MG CHEW TAB PO SCH (07:32)
[2017-10-29] MEDS: FUROSEMIDE 40 MG/4 ML VIAL IV PUSH SCH (07:32)
[2017-10-29] MEDS: DOCUSATE SODIUM 100 MG CAP PO SCH (07:32)
[2017-10-29] MEDS: POTASSIUM CHLORIDE 20 MEQ CONTROLLED RELEASE TAB PO SCH (07:32)
[2017-10-29] MEDS: POLYETHYLENE GLYCOL 17 GM PKG PO SCH (07:33)
[2017-10-29] MEDS: MAGNESIUM HYDROXIDE SUSP 30 ML CUP PO SCH (07:33)
[2017-10-29] MEDS: INSULIN DETEMIR 100 UNITS/ML VIAL SQ SCH (07:43)
[2017-10-29] MEDS: INSULIN ASPART SUPPLEMENTAL SCALE SQ SCH ×2 (07:43→12:35)
--- NOTE | 2017-10-29 09:28 | RADRPT ---
EXAM DATE/TIME: 10/29/2017 08:45 [facility] COMPARISON: CHEST SINGLE AP, October 25, 2017, 4:14. INDICATIONS : Post chest tube removal. Rule out pneumothorax. MEDICAL HISTORY : Hypertension. Renal calculi. Diabetes SURGICAL HISTORY : CABG. ENCOUNTER: Subsequent ACUITY: 4 - 6 days PAIN SCORE: 0/10 LOCATION: Bilateral chest FINDINGS: Interval removal of left subclavian catheter, mediastinal drains and left-sided chest tube. Linear pa renchymal opacities in the midlung zones bilaterally consistent with atelectasis. Minimal left basila r airspace disease also likely reflects atelectasis. No significant pneumothorax. Cardiomediastinal c ontours are stable. Remainder of exam is unchanged. CONCLUSION: 1. Interval removal of lines and tubes, as above. 2. Mild bilateral mid to lower lung zone atelectasis. 3. No significant pneumothorax. Los Patel MD on October 29, 2017 at 9:21 Board Certified Radiologist. This report was verified electronically.
[2017-10-29] MEDS ORDERED: COZA25TA PO (10:16)
[2017-10-29] MEDS ORDERED: AMIO200T PO (10:16)
[2017-10-29] MEDS ORDERED: DOCU1CAP39 PO (10:16)
[2017-10-29] MEDS ORDERED: METO25TA3 PO (10:16)
[2017-10-29] MEDS ORDERED: OXYC1TAB63 PO (10:16)
--- NOTE | 2017-10-29 10:42 | HHI.DS ---
Discharge Summary Admission Date Oct 24, 2017 at 05:36 Discharge Date: Oct 29, 2017 Admitting Diagnosis chest pain , CAD (1) Coronary artery disease Diagnosis: Principal ICD Codes: I25.10 - Atherosclerotic heart disease of [place] coronary artery without angina pectoris (2) Diabetes mellitus Diagnosis: Principal ICD Codes: E11.9 - Type 2 diabetes mellitus without complications (3) Hyperlipemia Diagnosis: Principal ICD Codes: E78.5 - Hyperlipidemia, unspecified (4) Hypertension Diagnosis: Principal ICD Codes: I10 - Essential (primary) hypertension (5) Afib ICD Codes: I48.91 - Unspecified atrial fibrillation Status: Resolved (6) S/P CABG (coronary artery bypass graft) Diagnosis: Secondary ICD Codes: Z95.1 - Presence of aortocoronary bypass graft Procedures CABG x 4 10/24 CHIU to LAD - good SVG to D1 - good SVG to OM2 - good SVG to PDA - fair EVH Brief History -year-old male patient Dr. Reaves and Dr. Linh Neves who has been having chest pain off and on for the last couple years, mainly notices about three times a week associated more with stress and anxiety with or without exertion. He feels that when he gets it, he gets a tightness in his chest like a rope closing in around his chest. He was given a prescription for some nitro which he has been taking recently which seems to help his discomfort. He was told back in the 1980s that he had some abnormal T-waves and was worked up in the past and was found to have gastroesophageal reflux disease. He underwent nuclear stress testing back in October. At that time, it demonstrated a small area of mild to moderate reversibility in the anterior apical region. EF at that time was calculated at 63%. Pt underwent outpt cardiac cath on 10/17/[address] Mckinley , which showed left main disease of 10%. The proximal LAD 90%. The mid distal LAD 90%. The diagonal had 10%. The circ had 90%. The OM 20%. The RCA 80%. We were consulted at that time to evaluate for coronary artery bypass grafting. Pt was discharged home after complete workup and re-admitted today for elective Coronary artery bypass grafting PAST MEDICAL HISTORY: Abnormal stress test back in 2016, Anxiety, Hyperlipidemia, Hypertension, Insulin dependent diabetes mellitus poorly controlled. intolerant to statins, takes Repatha injection biweekly CBC/BMP: 10/27/17 0445 10/27/17 0445 Significant Findings Laboratory Tests Test 10/27/17 04:45 Red Blood Count 3.93 MIL/MM3 (4.50-5.90) Hemoglobin 12.2 GM/DL (13.0-17.0) Hematocrit 34.8 % (39.0-51.0) Platelet Count 130 TH/MM3 (150-450) Neutrophils (%) (Auto) 72.3 % (16.0-70.0) Monocytes (%) (Auto) 10.5 % (0.0-8.0) Monocytes # (Auto) 1.0 TH/MM3 (0-0.9) Blood Urea Nitrogen 21 MG/DL (7-18) Random Glucose 153 MG/DL (74-106) Calcium Level 8.3 MG/DL (8.5-10.1) Estimat Glomerular Filtration Rate 65 ML/MIN (>89) Imaging Last Impressions Chest X-Ray 10/29/17 0000 Signed Impressions: Service Date/Time: Sunday, October 29, 2017 08:45 - CONCLUSION: 1. Interval removal of lines and tubes, as above. 2. Mild bilateral mid to lower lung zone atelectasis. 3. No significant pneumothorax. Los Patel MD PE at Discharge GENERAL: A&O x 3 SKIN: Warm and dry. prevena dressing to chest , incision intact to left leg HEAD: Normocephalic. EYES: No scleral icterus. No injection or drainage. NECK: Supple, trachea midline. No JVD or lymphadenopathy. CARDIOVASCULAR: Regular rate and rhythm without murmurs, gallops, or rubs. RESPIRATORY: Breath sounds equal bilaterally. No accessory muscle use. slightly diminished left lower lobe GASTROINTESTINAL: Abdomen soft, non-tender, nondistended. MUSCULOSKELETAL: No cyanosis, or edema. BACK: Nontender without obvious deformity. No CVA tenderness. Pt Condition on Discharge: Good Discharge Disposition: Disch w/ Home Health Serv Discharge Instructions DIET: Follow Instructions for: Heart Healthy Diet, Diabetic Diet Activities you can perform: Full Weight Bearing, Shower Only-No Bath Activities to avoid: Strenuous Activity, Driving Additional Activity Instructio: no liftin g> 8 lbs or gallon of milk Follow up Referrals: Cardiology - 4 Weeks with Clifton Reaves MD PCP Follow-up - 2 Weeks with Linh Neves M.d. Surgical - 2 Weeks with Starr Mullins New Orders: BASIC METABOLIC PROF - 2 Weeks CBC NO DIFF - 2 Weeks X-RAY CHEST PA & LAT - 2 Weeks New Medications: Amiodarone (Amiodarone) 200 Mg Tab 200 MG PO Q12HR for heart rhythm, #28 TAB 0 Refills Docusate Sodium (Dok) 100 Mg Cap 100 MG PO BID for Constipation, #60 CAP 0 Refills Losartan (Cozaar) 25 Mg Tab 50 MG PO DAILY for Blood Clot Prevention, #30 TAB 2 Refills Metoprolol Tartrate (Metoprolol Tartrate) 25 Mg Tab 25 MG PO Q12HR for Blood Pressure Management, #60 TAB 2 Refills Oxycodone HCl/Acetaminophen (Oxycodone-Acetaminophen 5-325) 5 Mg-325 Mg Tablet 1 TAB PO Q4HR PRN for PAIN SCALE 1 TO 5, #40 TAB 0 Refills Continued Medications: Aspirin DR (Aspirin DR) 81 Mg Tabdr 81 MG PO DAILY, TAB 0 Refills Cholecalciferol (Vitamin D3) 10,000 Unit Cap 84805 UNITS PO DAILY for Nutritional Supplement, #1 BOTTLE 0 Refills Coenzyme Q10 (Ubidecarenone) (Co Q-10) 200 Mg Cap 1 TAB PO HS Cyanocobalamin (B12) 1,000 Mcg Tab 1500 MG PO DAILY Evolocumab PF inj (Repatha Sureclick PF Inj) 140 Mg/Ml Pfpen 140 MG SQ Q2WEEK, INJECTION Fenofibrate (Fenofibrate) 160 Mg Tab 160 MG PO HS, #30 TAB 0 Refills Insulin Aspart Inj (Novolog Inj) 1,000 Unit/10 Ml Vial 0 SQ DIRECTED for Blood Sugar Management, #10 ML 0 Refills Sliding Scale as directed. Insulin Glargine Inj (Lantus Solostar Pen Inj) 300 Unit/3 Ml Pen 65 UNITS SQ DAILY for Blood Sugar Management, PEN 0 Refills Liraglutide Inj (Victoza Inj) 18 Mg/3 Ml Pen 1.2 MG SQ DAILY, #1 PEN 0 Refills Multiple Vitamins W/ Minerals (Preservision Areds) 1 Tab 1 TAB PO BID for Nutritional Supplement, TAB 0 Refills Saxagliptin (Onglyza) 5 Mg Tab 5 MG PO AC DINNER for Blood Sugar Management, #30 TAB 0 Refills Discontinued Medications: Isosorbide Mononitrate ER (Isosorbide Mononitrate ER) 120 Mg Isabel 120 MG PO DAILY for Prevent Chest Pain, #30 TAB 0 Refills Losartan (Losartan) 100 Mg Tab 100 MG PO HS for Blood Pressure Management, #30 TAB 0 Refills Metoprolol Succinate ER 24 HR (Metoprolol Succinate ER 24 HR) 50 Mg Tab 50 MG PO DAILY, #30 TAB 0 Refills Starr Mullins Oct 29, 2017 10:42
[2017-10-29] MEDS ORDERED: COMMODE 3-IN-11 MIS (13:17)
[2017-10-29] MEDS ORDERED: WALKER WHEELS/F1 MIS (13:17)
== END 2017-10-29 13:46 | disposition home health service (06) | DRG 236 ==
LOC: HSDI 05:36 → HCVI 12:35 → HCPC 10-26 07:45
PROVIDERS: ADMIT Thoracic Surgery (Cardiothoracic Vascular Surgery); ATTEND Thoracic Surgery (Cardiothoracic Vascular Surgery)
PROC: 5A1221Z Performance of Cardiac Output, Continuous (ICD-10-PCS; 2017-10-24)
PROC: 5A1935Z Respiratory Ventilation, Less than 24 Consecutive Hours (ICD-10-PCS; 2017-10-24)
PROC: 02100Z9 Bypass Coronary Artery, One Artery from Left Internal Mammary, Open Approach (ICD-10-PCS; principal; 2017-10-24 07:05)
PROC: 021209W Bypass Coronary Artery, Three Arteries from Aorta with Autologous Venous Tissue, Open Approach (ICD-10-PCS; 2017-10-24 07:05)
DX: I25.119 Atherosclerotic heart disease of native coronary artery with unspecified angina pectoris (principal); I48.91 Unspecified atrial fibrillation; E11.9 Type 2 diabetes mellitus without complications; I10 Essential (primary) hypertension; E78.5 Hyperlipidemia, unspecified; K21.9 Gastro-esophageal reflux disease without esophagitis; F41.9 Anxiety disorder, unspecified; Z79.4 Long term (current) use of insulin; I65.23 Occlusion and stenosis of bilateral carotid arteries
CPT/HCPCS: 71045; 76937; 80048; 82948; 83735; 85025; 85027; 86850; 86900; 86901; 86920; 93005; 94002; 94150; 94640; 94664; 94667; 94668; J0131; J0282; J0330; J1644; J1815; J1817; J1885; J1940; J2150; J2250; J2370; J2405; J2720; J2930; J3010; J3370; J3475; J3480; J7050; J7120; P9045